=== PATIENT | female | born 1955 | race Caucasian/White ===

== ENCOUNTER 2018-04-24 01:23 | Outpatient (CLI) | payer OTHER, SELFPAY ==
[2018-04-24 10:33] LABS: Hemoglobin A1C 9.5 % (4.5-6.2)
[2018-04-24 11:09] LABS: Anion Gap 8.9 mmol/L (3-11); BUN 16 mg/dL (7-18); CO2 30.1 mmol/L (21.0-32.0); Calcium 8.6 mg/dL (8.5-10.1); Chloride 100 mmol/L (98-107); Glucose 226 mg/dL (70-100); Potassium 3.8 mmol/L (3.5-5.1); Sodium 139 mmol/L (136-145)
== END 2018-04-24 01:43 ==
DX: E11.9 Type 2 diabetes mellitus without complications (principal); I10 Essential (primary) hypertension; F32.9 Major depressive disorder, single episode, unspecified; J45.909 Unspecified asthma, uncomplicated
CPT/HCPCS: 36415; 80048; 83036

== ENCOUNTER 2018-06-21 01:06 | Outpatient (CLI) | payer OTHER, SELFPAY ==
--- NOTE | 2018-06-21 12:15 | DI.MAMMO_ITS ---
SYMPTOMS/DIAGNOSIS: SCREENING, Z12.31 MAMMOGRAM: Mammograms were interpreted according to the usual protocol including computer analysis with CAD system, tomosynthesis and C view imaging. The breasts are of moderate density with fairly symmetrical distribution of fibroglandular tissue. No dominant mass or clumped microcalcification is identified in either breast. The current examination is compared with previous examinations including October 2016 and there has been no gross interval change in appearance in comparison with the previous studies. CONCLUSION: No specific evidence of malignancy at this time. Routine screening examinations are suggested at yearly intervals due to the family history of breast carcinoma. Category I. Breast density Category B. MQSA ASSESSMENT OF FINDINGS: Negative. Category 1. Patient will receive a letter notifying them of these results. BI-RADS category B. There are scattered areas of fibroglandular density.
== END 2018-06-21 01:26 ==
DX: Z12.31 Encounter for screening mammogram for malignant neoplasm of breast (principal)
CPT/HCPCS: 77063; 77067

== ENCOUNTER 2018-09-18 18:41 | Outpatient (REF) | payer BC, SELFPAY | END 2018-09-18 19:01 | LOC: LBN 18:41 | PROVIDERS: Visit Provider Family Medicine | DX: N89.8 Other specified noninflammatory disorders of vagina (principal) | CPT/HCPCS: 87480; 87510; 87660 ==

== ENCOUNTER 2018-09-29 16:22 | Outpatient (CLI) | payer BC, SELFPAY ==
[2018-09-29 16:52] LABS: Abs Immature Grans 0.07 k/cumm (0.0-0.09); Absolute Basophil Count 0.04 k/cumm (0.0-0.2); Absolute Eosinophil Count 0.06 k/cumm (0.0-0.7); Absolute Lymphocyte Count 1.03 k/cumm (1.2-3.4); Absolute Monocyte Count 0.38 k/cumm (0.11-0.7); Absolute Neutrophil Count 8.46 k/cumm (1.2-6.7); Basophils % 0.4; Eosinophils % 0.6; HGB 12.8 g/dL (12.0-15.5); Immature Grans % 0.7; Lymphocytes % 10.3; Mean Corpuscular Hemoglobin 29.6 pg (27.0-33.0); Mean Corpuscular Volume 92.4 fL (80-95); Mean Platelet Volume 9.8 fL (8.0-11.0); Monocytes % 3.8; Neutrophils % 84.2; Platelet Count 335 x1000/uL (130-400); RBC 4.33 m/cumm (4.00-5.20); White Blood Cell Count 10.04 k/cumm (4.4-10.8)
[2018-09-29 17:50] LABS: ALT 58 U/L (12-78); AST 19 U/L (15-37); Albumin 3.2 g/dL (3.4-5.0); Alkaline Phosphatase 116 U/L (46-116); Anion Gap 10.9 mmol/L (3-11); BUN 17 mg/dL (7-18); Bilirubin, Total 0.2 mg/dL (0.2-1.0); CO2 29.1 mmol/L (21.0-32.0); CREATININE 0.79 mg/dL (0.55-1.02); Calcium 8.7 mg/dL (8.5-10.1); Chloride 96 mmol/L (98-107); FREE T4 1.38 ng/dL (0.76-1.46); Glucose 426 mg/dL (70-100); Potassium 3.9 mmol/L (3.5-5.1); Sodium 136 mmol/L (136-145)
[2018-09-29 18:16] LABS: TSH 3.79 uIU/mL (0.358-3.74)
== END 2018-09-29 16:42 ==
PROVIDERS: PCP Nurse Practitioner Family; Visit Provider Nurse Practitioner Family
DX: R10.30 Lower abdominal pain, unspecified (principal); R30.0 Dysuria; N89.8 Other specified noninflammatory disorders of vagina; J02.9 Acute pharyngitis, unspecified; R06.02 Shortness of breath
CPT/HCPCS: 36415; 80053; 87077; 84439; 84443; 85025; 87070; 87081; 87086; 87480; 87510; 87660

== ENCOUNTER 2018-11-01 17:18 | Outpatient (REF) | payer BC, SELFPAY ==
--- NOTE | 2018-11-01 16:00 | VUL_PTH ---
PATIENT: Aicha Taylor LOC: [facility] U#:[id number] AGE/SX: 63/F ROOM: RE11/01/[address]: Kym Madera : 1955 BED: DIS: 11/01/2018 SPEC #: [id number] RECD: 11/01/18 17:55 STATUS: CRYS REByron #: [id number] YOHANA: 11/01/18 16:[address]: Kym Madera DEPT: Surgical Specimen RECD BY: Siobhan Drummond ENTERED: 11/01/18 17:56 SP TYPE: VUL OTHR DR: CHILANGO Valdivia Tissues: 1 - VULVA BIOPSY 2 - VULVA BIOPSY Procedures: GROSS AND MICRO LEVEL 4 SPECIAL STAIN 1 Comments: [id number]
== END 2018-11-01 17:38 ==
LOC: LBN 17:18
PROVIDERS: PCP Nurse Practitioner Family; Visit Provider Obstetrics & Gynecology Gynecology
DX: N76.89 Other specified inflammation of vagina and vulva (principal)
CPT/HCPCS: 88305; 88312

== ENCOUNTER 2018-12-06 10:56 | Outpatient (CLI) | payer BC, SELFPAY ==
[2018-12-06 13:04] LABS: Hemoglobin A1C 11.9 % (4.5-6.2)
[2018-12-06 13:08] LABS: FREE T4 1.42 ng/dL (0.76-1.46); TSH 6.86 uIU/mL (0.358-3.74)
[2018-12-08 10:32] LABS: Cholesterol 234 mg/dL (50-200); HDL Cholesterol 42 mg/dL (40-60); LDL CHOLESTEROL 162 mg/dL (<100); Triglyceride 227 mg/dL (30-150)
== END 2018-12-06 11:16 ==
PROVIDERS: PCP Nurse Practitioner Family; Visit Provider Nurse Practitioner Family
DX: E11.9 Type 2 diabetes mellitus without complications (principal); E03.9 Hypothyroidism, unspecified
CPT/HCPCS: 36415; 80061; 83721; 83036; 84439; 84443

== ENCOUNTER 2019-03-16 03:55 | Outpatient (CLI) | payer BC, SELFPAY ==
[2019-03-16 13:00] LABS: Anion Gap 11.9 mmol/L (3-11); BUN 15 mg/dL (7-18); CO2 29.1 mmol/L (21.0-32.0); CREATININE 0.64 mg/dL (0.55-1.02); Calcium 8.9 mg/dL (8.5-10.1); Calculated LDL 85 mg/dL; Chloride 99 mmol/L (98-107); Cholesterol 151 mg/dL (50-200); Glucose 184 mg/dL (70-100); HDL Cholesterol 46 mg/dL (40-60); Sodium 140 mmol/L (136-145); Triglyceride 104 mg/dL (30-150)
[2019-03-16 13:10] LABS: Hemoglobin A1C 10.2 % (4.5-6.2)
== END 2019-03-16 04:15 ==
PROVIDERS: PCP Nurse Practitioner Family; Visit Provider Nurse Practitioner Family
DX: E11.9 Type 2 diabetes mellitus without complications (principal)
CPT/HCPCS: 36415; 80048; 80061; 83721; 83036

== ENCOUNTER 2019-05-28 07:26 | Outpatient (CLI) | payer BC, SELFPAY ==
[2019-05-28 12:46] LABS: COMMENT (LAB VIEW ONLY) < 13.00 mg/dL
[2019-05-28 13:56] LABS: FREE T4 1.39 ng/dL (0.76-1.46); TSH 5.98 uIU/mL (0.36-3.74)
[2019-05-28 14:45] LABS: Vitamin D 25 Total 55.1 ng/ml (30-100)
== END 2019-05-28 07:46 ==
PROVIDERS: PCP Nurse Practitioner Family; Visit Provider Nurse Practitioner Family
DX: E03.9 Hypothyroidism, unspecified (principal); E55.9 Vitamin D deficiency, unspecified; E11.9 Type 2 diabetes mellitus without complications
CPT/HCPCS: 36415; 82306; 82043; 82570; 84439; 84443

== ENCOUNTER 2019-07-16 09:27 | Outpatient (CLI) | payer BC, SELFPAY ==
[2019-07-16 14:44] LABS: FREE T4 1.57 ng/dL (0.76-1.46); TSH 1.69 uIU/mL (0.36-3.74)
== END 2019-07-16 09:47 ==
PROVIDERS: PCP Nurse Practitioner Family; Visit Provider Nurse Practitioner Family
DX: E03.9 Hypothyroidism, unspecified (principal)
CPT/HCPCS: 36415; 84439; 84443

== ENCOUNTER 2019-07-19 00:36 | Outpatient (CLI) | payer BC, SELFPAY ==
--- NOTE | 2019-07-19 14:26 | DI.DEXA_ITS ---
EXAM: XR DEXA BONE DENSITY W/WO AMOL INDICATION: Postmenopausal Z78.0. COMPARISON: CHEST 2 VIEWS PA,LAT from 11/07/2016 FINDINGS: The AMOL image shows accentuation of the normal thoracic kyphosis but no definite compression fractur e. This does not appear to be significantly changed from previous chest x-ray from 2017. Bone money examiner al density measurements of the lumbar spine correspond to a total T-score of -1.7, in the osteopenic range. The bone mineral density measurements of the left hip correspond to a total T-score of 0.5 an d a femoral neck T-score of -0.7, in the normal range. The bone mineral density measurements of left forearm correspond to a T-score of the distal 3rd of 0.2, in the normal range. IMPRESSION: Normal bone mineral density measurements of the left forearm and left hip. Osteopenia of lumbar spin e.
== END 2019-07-19 00:56 ==
PROVIDERS: PCP Nurse Practitioner Family; Visit Provider Nurse Practitioner Family
DX: M85.88 Other specified disorders of bone density and structure, other site (principal); Z78.0 Asymptomatic menopausal state
CPT/HCPCS: 77080

== ENCOUNTER 2019-09-27 11:59 | Outpatient (CLI) | payer OTHER, SELFPAY ==
[2019-09-27 13:39] LABS: TSH 3.06 uIU/mL (0.36-3.74)
[2019-09-27 13:54] LABS: Hemoglobin A1C 8.4 % (3.8-5.6)
== END 2019-09-27 12:19 ==
PROVIDERS: PCP Nurse Practitioner Family; Visit Provider Nurse Practitioner Family
DX: E03.9 Hypothyroidism, unspecified (principal); E11.9 Type 2 diabetes mellitus without complications
CPT/HCPCS: 36415; 83036; 84439; 84443

== ENCOUNTER 2019-09-27 12:17 | Outpatient (REF) | payer OTHER, SELFPAY | END 2019-09-27 12:37 | LOC: LBN 12:17 | PROVIDERS: PCP Nurse Practitioner Family; Visit Provider Nurse Practitioner Family | DX: J06.9 Acute upper respiratory infection, unspecified (principal) | CPT/HCPCS: 87449 ==

== ENCOUNTER 2020-01-08 02:34 | Outpatient (CLI) | payer OTHER, SELFPAY ==
--- NOTE | 2020-01-08 10:00 | DI.MAMMO_ITS ---
EXAM: MG MAMMO SCREENING CLINICAL HISTORY: screening.z12.39 TECHNIQUE: Mammograms were interpreted according to the usual protocol including computer analysis w [employer] CAD system, tomosynthesis and C-view imaging. COMPARISON: FINDINGS: The breasts are of moderate density with fairly symmetrical distribution of fibroglandular tissue. N o dominant mass or clumped microcalcification is identified in either breast. The current examinatio n is compared with previous examinations including June 2018 and there has been no gross interval change in appearance comparison with previous studies. IMPRESSION: No specific evidence of malignancy at this time. Routine screening examinations are suggested at yea rly intervals due to the family history of breast carcinoma. BI-RADS Cat 1 - Negative: Breast Density - Category B - Scattered areas of fibroglandular density:
== END 2020-01-08 02:54 ==
PROVIDERS: PCP Nurse Practitioner Family; Visit Provider Nurse Practitioner Family
DX: Z12.31 Encounter for screening mammogram for malignant neoplasm of breast (principal); Z80.3 Family history of malignant neoplasm of breast
CPT/HCPCS: 77063; 77067

== ENCOUNTER 2020-01-08 05:05 | Outpatient (CLI) | payer OTHER, SELFPAY ==
[2020-01-08 11:44] LABS: C-Reactive Protein 2.31 mg/dL (0.0-0.3)
[2020-01-08 12:18] LABS: ESR 63 mm/hr (0-30)
[2020-01-09 16:47] LABS: Albumin 47.1 % (55.8-66.1); Total Protein 7.7 g/dL (6.3-8.2)
== END 2020-01-08 05:25 ==
PROVIDERS: PCP Nurse Practitioner Family; Visit Provider Nurse Practitioner Family
DX: M35.3 Polymyalgia rheumatica (principal)
CPT/HCPCS: 36415; 85652; 84165; 86140

== ENCOUNTER 2020-06-10 04:46 | Outpatient (CLI) | payer OTHER, SELFPAY ==
[2020-06-10 12:45] LABS: ALT 27 U/L (14-59); AST 10 U/L (15-37); Albumin 3.4 g/dL (3.4-5.0); Alkaline Phosphatase 102 U/L (46-116); BUN 21 mg/dL (7-18); Bilirubin, Total 0.2 mg/dL (0.2-1.0); C-Reactive Protein 2.49 mg/dL (0.0-0.3); CREATININE 0.75 mg/dL (0.55-1.02); Calcium 9.2 mg/dL (8.5-10.1); Chloride 103 mmol/L (98-107); FREE T4 1.29 ng/dL (0.76-1.46); Glucose 125 mg/dL (74-106); Potassium 4.1 mmol/L (3.5-5.1); Sodium 139 mmol/L (136-145); TSH 1.47 uIU/mL (0.36-3.74); Total Protein 7.6 g/dL (6.4-8.2)
[2020-06-10 12:59] LABS: Calculated LDL 91 mg/dL (<100); Cholesterol 153 mg/dL (<200); HDL Cholesterol 41 mg/dL (40-60); Triglyceride 109 mg/dL (<150)
[2020-06-10 13:09] LABS: Hemoglobin A1C 6.6 % (<5.7)
[2020-06-10 13:49] LABS: ESR 77 mm/hr (0-30)
[2020-06-13 15:15] LABS: Albumin 3.2 g/dL (3.4-4.7); Total Protein 7.4 g/dL (6.3-7.9)
[2020-06-13 15:16] LABS: Comment See Comments
== END 2020-06-10 05:06 ==
PROVIDERS: PCP Nurse Practitioner Family; Visit Provider Nurse Practitioner Family
DX: E03.9 Hypothyroidism, unspecified (principal); E11.9 Type 2 diabetes mellitus without complications; M35.3 Polymyalgia rheumatica
CPT/HCPCS: 36415; 80053; 80061; 85652; 83036; 84165; 84439; 84443; 86140

== ENCOUNTER 2020-06-25 01:03 | Outpatient (CLI) | payer OTHER, SELFPAY ==
--- NOTE | 2020-06-25 | DI.RAD_ITS ---
EXAM: XR CHEST 2V PA LATERAL CLINICAL HISTORY: MEDICATION MONITORING ENCOUNTER,Z51.81,REP BIOLOGICAL,h/o idiopathic TECHNIQUE: 2D digital imaging was performed. COMPARISON: CR CHEST 2 VIEWS PA,LAT from 11/07/2016 FINDINGS: MEDIASTINUM: Normal. HEART: Normal. PULMONARY VASCULATURE: Normal. LUNGS: Clear. Stable mild scarring in the left lung. PLEURAL SPACE: No pleural effusion or pneumothorax. BONE:Within normal limits for the patient's age. OTHER FINDINGS:Normal. IMPRESSION: No acute pulmonary findings. DATA REPOSITORY: RADIATION DOSE DELIVERED:
--- NOTE | 2020-06-25 | DI.RAD_ITS ---
EXAM: XR KNEE LT 3V AP,LAT,MONSERRAT CLINICAL HISTORY: CHRONIC KNEE PAIN, REP-BIOLOGICAL,M25.561,M25.562,G89.29. TECHNIQUE: 2D digital imaging was performed. COMPARISON: CR XR CHEST 2V PA LATERAL from 06/25/2020 FINDINGS: Mild degenerative changes are seen in the left knee characterized by joint space narrowing and periar ticular spurring particularly in the medial femoral tibial joint space. The bones are intact and nor jennifer mineralized. No joint effusion is seen. The soft tissues are unremarkable. No acute fracture or dislocation. IMPRESSION: Mild degenerative changes of the left knee. DATA REPOSITORY: RADIATION DOSE DELIVERED:
--- NOTE | 2020-06-25 | DI.RAD_ITS ---
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 TECHNIQUE: 2D digital imaging was performed. COMPARISON: No exams were available for comparison FINDINGS: BONES: No acute fracture is present. No bony destructive lesion is seen. JOINTS: No dislocation present. Mild narrowing of the hip joints bilaterally. The sacroiliac joints are unremarkable. SOFT TISSUE: Normal. IMPRESSION: Mild bilateral narrowing of the hip joints. DATA REPOSITORY: RADIATION DOSE DELIVERED:
--- NOTE | 2020-06-25 | DI.RAD_ITS ---
EXAM: XR KNEE RT 3V AP,LAT,MONSERRAT CLINICAL HISTORY: KNEE PAIN,M25.561,M25.562,G89.29. TECHNIQUE: 2D digital imaging was performed. COMPARISON: CR XR KNEE LT 3V AP,LAT,MONSERRAT from 06/25/2020 FINDINGS: Mild degenerative changes are seen in the right knee with joint space narrowing and periarticular spu rring in the lateral femoral tibial joint. The joint spaces are otherwise well maintained. The bone s are intact and normally mineralized. There is a small enthesophyte at the superior patella. No matt int effusion is present. The soft tissues are unremarkable. IMPRESSION: Mild degenerative changes of the right knee. DATA REPOSITORY: RADIATION DOSE DELIVERED:
== END 2020-06-25 01:23 ==
PROVIDERS: PCP Nurse Practitioner Family; Visit Provider Internal Medicine
DX: M17.0 Bilateral primary osteoarthritis of knee (principal); Z51.81 Encounter for therapeutic drug level monitoring; M25.851 Other specified joint disorders, right hip; M25.852 Other specified joint disorders, left hip
CPT/HCPCS: 73521; 73562; 71046

== ENCOUNTER 2020-06-25 02:52 | Outpatient (CLI) | payer OTHER, SELFPAY ==
[2020-06-25 12:06] LABS: C-Reactive Protein 3.04 mg/dL (0.0-0.3); Creatine Kinase 52 U/L (26-192)
[2020-06-25 13:42] LABS: ESR 78 mm/hr (0-30)
[2020-07-10 11:56] LABS: TB Interpretation Negative (Negative); TB1 Ag minus Nil -0.01 IU/mL
== END 2020-06-25 03:12 ==
PROVIDERS: Internal Medicine; PCP Nurse Practitioner Family; Visit Provider Nurse Practitioner Family
DX: Z51.81 Encounter for therapeutic drug level monitoring (principal); I30.0 Acute nonspecific idiopathic pericarditis; M35.3 Polymyalgia rheumatica; R89.9 Unspecified abnormal finding in specimens from other organs, systems and tissues; M54.30 Sciatica, unspecified side; M25.551 Pain in right hip; G89.29 Other chronic pain; M25.561 Pain in right knee; M25.562 Pain in left knee; M25.552 Pain in left hip
CPT/HCPCS: 36415; 82550; 85652; 86140; 86431; 86480

== ENCOUNTER 2020-07-07 10:40 | Outpatient (CLI) | payer OTHER, SELFPAY ==
[2020-07-09 13:52] LABS: TB Interpretation Negative (Negative); TB2 Ag minus Nil 0.02 IU/mL
== END 2020-07-07 11:00 ==
PROVIDERS: PCP Nurse Practitioner Family; Referring Provider Nurse Practitioner Family; Visit Provider Nurse Practitioner Family
DX: M35.3 Polymyalgia rheumatica (principal); M19.90 Unspecified osteoarthritis, unspecified site
CPT/HCPCS: 36415; 86480

== ENCOUNTER → 2020-08-15 10:09 | Outpatient (CLI) | payer OTHER, SELFPAY ==
--- NOTE | 2020-08-15 09:45 | DI.RAD_ITS ---
EXAM: XR LUMBAR SPINE COMPLETE CLINICAL HISTORY: eval LBP, ?stenosis. TECHNIQUE: 2D digital imaging was performed. COMPARISON: No exams were available for comparison FINDINGS: There are 5 lumbar type vertebral bodies. There is normal alignment. No spondylolysis or spondyloli sthesis is present. The disc heights are well maintained. Small endplate osteophytes are seen from L2-3 through L5-S1. There are degenerative changes of the facets from L3-4 through L5-S1. No acute fracture or subluxation is present. There is atherosclerosis. IMPRESSION: Moderate degenerative changes of the lumbar spine. DATA REPOSITORY: RADIATION DOSE DELIVERED:
== END ==
PROVIDERS: PCP Nurse Practitioner Family; Referring Provider Nurse Practitioner Family; Visit Provider Student in an Organized Health Care Education/Training Program
DX: M47.816 Spondylosis without myelopathy or radiculopathy, lumbar region (principal)
CPT/HCPCS: 72110

== ENCOUNTER 2020-08-22 01:04 | Outpatient (CLI) | payer OTHER, SELFPAY ==
[2020-08-22 12:53] LABS: Abs Immature Grans 0.07 10^3/uL (0.0-0.06); Absolute Basophil Count 0.06 10^3/uL (0.0-0.2); Absolute Eosinophil Count 0.14 10^3/uL (0.0-0.7); Absolute Lymphocyte Count 1.26 10^3/uL (1.2-3.4); Absolute Monocyte Count 0.46 10^3/uL (0.1-0.8); Absolute Neutrophil Count 8.02 10^3/uL (1.2-6.7); Basophils % 0.6; Eosinophils % 1.4; HCT 38.6 % (36.0-46.0); HGB 11.7 g/dL (11.2-15.7); Immature Grans % 0.7; Lymphocytes % 12.6; MCH 25.2 pg (27.0-33.0); MCHC 30.3 % (32.0-36.0); MPV 9.2 fL (8.0-11.0); Monocytes % 4.6; Neutrophils % 80.1; Nucleated RBC 0 %; Platelet Count 422 10^3/uL (130-400); RBC 4.65 10^6/uL (3.93-5.22); RDW 16.4 % (11.7-14.6); RDW-SD 48.4 fL; WBC 10.01 10^3/uL (4.4-10.8)
[2020-08-22 12:59] LABS: ALT 25 U/L (14-59); AST 10 U/L (15-37); Albumin 3.4 g/dL (3.4-5.0); Alkaline Phosphatase 99 U/L (46-116); Anion Gap 7.8 mmol/L (3-11); BUN 20 mg/dL (7-18); Bilirubin, Total 0.2 mg/dL (0.2-1.0); C-Reactive Protein 2.14 mg/dL (0.0-0.3); CO2 30.2 mmol/L (21.0-32.0); CREATININE 0.76 mg/dL (0.55-1.02); Chloride 102 mmol/L (98-107); Glucose 154 mg/dL (74-106); Sodium 140 mmol/L (136-145); Total Protein 7.8 g/dL (6.4-8.2)
[2020-08-22 14:10] LABS: ESR 50 mm/hr (0-30)
== END 2020-08-22 01:24 ==
PROVIDERS: PCP Nurse Practitioner Family; Visit Provider Internal Medicine
DX: M35.3 Polymyalgia rheumatica (principal); R89.9 Unspecified abnormal finding in specimens from other organs, systems and tissues; Z51.81 Encounter for therapeutic drug level monitoring
CPT/HCPCS: 36415; 80053; 85652; 85025; 86140

== ENCOUNTER 2020-08-28 03:30 | Outpatient (CLI) | payer OTHER, SELFPAY ==
--- NOTE | 2020-08-28 08:00 | DI.RAD_ITS ---
EXAM: RF JOINT INJECTION FLUORO GUID CLINICAL HISTORY: L HIP INJ UNDER FLUORO, LT HIP PAIN, M25.552 TECHNIQUE: 2D and realtime digital imaging was performed. CONTRAST MATERIAL: Water soluble contrast was administered. COMPARISON: No exams were available for comparison FINDINGS: Fluoroscopy was provided for Dr. Cabrera during the performance of a bilateral hip injection. Plea se refer to the procedure report for complete details. Fluoro time: 2 seconds
--- NOTE | 2020-08-28 08:00 | DI.RAD_ITS ---
EXAM: RF JOINT INJECTION FLUORO GUID CLINICAL HISTORY: R HIP INJ UNDER FLUORO, RT HIP PAIN, M25.552 TECHNIQUE: 2D and realtime digital imaging was performed. CONTRAST MATERIAL: Water soluble contrast was administered. COMPARISON: No exams were available for comparison FINDINGS: Fluoroscopy was provided for Dr. Cabrera during the performance of a bilateral hip injection. Plea se refer to the procedure report for complete details. Fluoro time: 2 seconds
[2020-08-28] MEDS: Bupivacaine 0.5% Pres-Free 10 ML VIAL IJ (13:38)
[2020-08-28] MEDS: methylPREDNISolone ACETATE 80 MG/ML VIAL IM (13:39)
--- NOTE | 2020-08-28 14:21 | OPPNE_ITS ---
Date of service: 08/28/20 Time of Service: 13:29 Procedure Note Date of procedure: 08/28/20 Procedure: Bilateral Hip Injection with Fluoroscopic Guidance Surgeon/Proceduralist/Physician: Viktor Cabrera Procedure Diagnosis: Bilateral Hip Pain Procedure Indications: Aicha has had persistent pain of both RIGHT and LEFT hip and groin. Noninvasive measures have been tried. There are also cocerns that this is coming from the lumbar spine. To serve as both diagnostic and therapeutic, an injection under fluoroscopy was recommended. I had discussed the risks of the procedure and the patient elected to proceed. Procedure Description: Aicha was greeted in the flouroscopy room. The correct site was identified and the consent was reviewed with the patient and signed. The patient was then placed in the supine position on the fluoroscopy table. The RIGHT hip was then prepped with Chloraprep. The anterolateral injection starting point was identiifed by bony landmarks and fluoroscopy. The skin and soft tissue in the tract of the injection was anesthetized with 1% Lidocaine. A spinal needle was then inserted deep into the hip joint at the level of the lateral femoral neck under fluoroscopic guidance. Omnipaque was not used due to iodinated contrast allergy but needle was confirmed to be in hip on flouro and tactile feedback of needle tip on bone. Then, the hip was injected with 5cc of 0.5% Bupivicaine and 80mg of Depo-Medrol. A bandaid was placed on the injection site. Attention was then turned to the left hip. This left hip was then prepped with ChloraPrep. The anterolateral injection starting point was identiifed by bony landmarks and fluoroscopy. The skin and soft tissue in the tract of the inject ion was anesthetized with 1% Lidocaine. A spinal needle was then inserted deep into the hip joint at the level of the lateral femoral neck under fluoroscopic guidance. Omnipaque was not used due to iodinated contrast allergy but needle was confirmed to be in hip on flouro and tactile feedback of needle tip on bone. Then, the hip was injected with 5cc of 0.5% Bupivicaine and 80mg of Depo-Medrol. A bandaid was placed on the injection site. The patient tolerated the procedure well and noted improvement in pre-injection pain.
== END 2020-08-28 03:50 ==
PROVIDERS: PCP Nurse Practitioner Family; Visit Provider Student in an Organized Health Care Education/Training Program
DX: M25.552 Pain in left hip (principal); M25.551 Pain in right hip
CPT/HCPCS: 20610 ×2; 77002; J1040

== ENCOUNTER 2020-10-24 01:47 | Outpatient (CLI) | payer OTHER, SELFPAY ==
[2020-10-24 12:22] LABS: Absolute Basophil Count 0.06 10^3/uL (0.0-0.2); Absolute Lymphocyte Count 1.69 10^3/uL (1.2-3.4); Absolute Neutrophil Count 11.68 10^3/uL (1.2-6.7); Basophils % 0.4; Eosinophils % 0.8; HCT 37.5 % (36.0-46.0); HGB 11.6 g/dL (11.2-15.7); Immature Grans % 0.7; Lymphocytes % 11.8; MCH 25.7 pg (27.0-33.0); MCHC 30.9 % (32.0-36.0); MPV 9.1 fL (8.0-11.0); Monocytes % 4.9; Neutrophils % 81.4; Nucleated RBC 0 %; Platelet Count 414 10^3/uL (130-400); RBC 4.52 10^6/uL (3.93-5.22); RDW 17.1 % (11.7-14.6); RDW-SD 50.3 fL; WBC 14.35 10^3/uL (4.4-10.8)
[2020-10-24 12:30] LABS: Absolute Eosinophil Count 0.11 10^3/uL (0.0-0.7)
[2020-10-24 12:38] LABS: ALT 26 U/L (14-59); AST 7 U/L (15-37); Albumin 3.4 g/dL (3.4-5.0); Alkaline Phosphatase 110 U/L (46-116); Anion Gap 10.8 mmol/L (3-11); BUN 18 mg/dL (7-18); Bilirubin, Total 0.3 mg/dL (0.2-1.0); C-Reactive Protein 2.98 mg/dL (0.0-0.3); CO2 31.2 mmol/L (21.0-32.0); CREATININE 0.8 mg/dL (0.55-1.02); Calcium 9.5 mg/dL (8.5-10.1); Chloride 98 mmol/L (98-107); Glucose 111 mg/dL (74-106); Potassium 3.4 mmol/L (3.5-5.1); Sodium 140 mmol/L (136-145); Total Protein 7.9 g/dL (6.4-8.2)
[2020-10-24 19:30] LABS: ESR 105 mm/hr (<or=30)
== END 2020-10-24 01:48 | disposition home or self-care (01) ==
LOC: LOS 01:47
PROVIDERS: PCP Nurse Practitioner Family; Visit Provider Internal Medicine
DX: M35.3 Polymyalgia rheumatica (principal); R89.9 Unspecified abnormal finding in specimens from other organs, systems and tissues; Z51.81 Encounter for therapeutic drug level monitoring
CPT/HCPCS: 36415; 80053; 85652; 85025; 86140

== ENCOUNTER 2020-11-21 02:28 | Outpatient (CLI) | payer OTHER, SELFPAY ==
[2020-11-22 15:07] LABS: COVID-19 RT-PCR UVMMC Result Negative (Negative)
== END 2020-11-21 02:29 | disposition home or self-care (01) ==
LOC: LBO 02:29
PROVIDERS: PCP Nurse Practitioner Family; Visit Provider Nurse Practitioner Family
DX: Z20.822 Contact with and (suspected) exposure to COVID-19 (principal)
CPT/HCPCS: U0003

== ENCOUNTER 2020-11-24 02:51 | Outpatient (CLI) | payer OTHER, SELFPAY ==
[2020-11-25 18:09] LABS: COVID-19 RT-PCR UVMMC Result Negative (Negative)
== END 2020-11-24 02:52 | disposition home or self-care (01) ==
LOC: LBO 02:52
PROVIDERS: PCP Nurse Practitioner Family; Visit Provider Nurse Practitioner Family
DX: Z20.822 Contact with and (suspected) exposure to COVID-19 (principal)
CPT/HCPCS: U0003

== ENCOUNTER 2020-12-09 20:50 | Outpatient (REF) | payer OTHER, SELFPAY ==
[2020-12-09 21:09] LABS: Bilirubin Negative (Negative); Blood Negative (Negative); Clarity Sl Cloudy (Clear); Glucose Negative (Negative); Ketones Negative (Negative); Leukocyte Esterase Trace (Negative); Nitrite Negative (Negative); Specific Gravity >= 1.030 (1.005-1.025); Urobilinogen 0.2 EU/dL (Up TO 0.2); pH 5.5 (5-8)
[2020-12-09 21:15] LABS: Bacteria Moderate HPF (Negative); C & S Indicated? Yes; Casts Negative LPF (Negative); Crystals Moderate Amorphous HPF (Negative); Epithelial Cells Few HPF (Negative); Mucus Negative (Negative); RBC Negative HPF (0-2)
== END 2020-12-09 20:51 | disposition home or self-care (01) ==
LOC: LBN 20:50
PROVIDERS: PCP Nurse Practitioner Family; Visit Provider Nurse Practitioner Family
DX: R31.9 Hematuria, unspecified (principal)
CPT/HCPCS: 81003; 81015; 87086

== ENCOUNTER 2020-12-16 03:57 | Outpatient (CLI) | payer OTHER, SELFPAY ==
[2020-12-16] MEDS: Inhaler, Assist Device 1 EACH MC (14:30)
[2020-12-16] MEDS: Albuterol HFA 18 GM 200 PUFF INH IH (14:30)
--- NOTE | 2020-12-16 19:29 | W.PFT ---
Date of service: 12/16/20 Time of Service: 01:01 Pulmonary Function Test Result Interpretation Spirometry: Mild obstructive airways disease with some but not significant bronchodilator response Lung Volumes: No evidence of restriction Diffusion Capacity: Normal Airway Pressure: Mildly elevated Impression Mild obstructive airways disease with some but not significant bronchodilator response when the study was compared to previous one from 11/01/2014 there is a 340 cc decline in FVC, FEV1 has declined by 150 cc Clinical Correlation therefore is recommended.
== END 2020-12-16 03:58 | disposition home or self-care (01) ==
LOC: RT 03:57
PROVIDERS: PCP Nurse Practitioner Family; Visit Provider Nurse Practitioner Family
DX: J45.40 Moderate persistent asthma, uncomplicated (principal); R06.09 Other forms of dyspnea; R07.89 Other chest pain
CPT/HCPCS: 94060; 94726; 94729

== ENCOUNTER 2021-02-19 02:27 | Outpatient (CLI) | payer OTHER, SELFPAY ==
--- NOTE | 2021-02-19 08:00 | DI.US_ITS ---
APPROVED REPORT EXAM: Comprehensive 2D, Doppler, and color-flow Echocardiogram Patient Location: Out-Patient Client Operations Manager: Isabel Barbour RDCS (AE) Indications: Persistent Dyspne on exertion Other Information Study Quality: Fair. Technically limited study due to body habitus. Conclusion Left Ventricle : The left ventricle is normal size. The left ventricular ejection fraction is within the normal range. There is normal left ventricular wall thickness. There is normal LV segmental wall motion. LVEF is 57%. Right Ventricle : The right ventricle is normal size. The right ventricular systolic function is norm al. Atria : The left atrium size is normal. The right atrium size is normal. Valves: There are no hemodynamically significant valvular lesions. Great Vessels : The aortic root is normal in size. The ascending aorta is mildly dilated. Aortic arch is normal in caliber. IVC is normal in size and collapses >50% with inspiration. Please see remainder of study for further details. Wall motion Left Ventricle The left ventricle is normal size. The left ventricular ejection fraction is within the normal range. There is normal left ventricular wall thickness. There is normal LV segmental wall motion. There is no ventricular septal defect visualized. LVEF is 57%. Right Ventricle The right ventricle is normal size. The right ventricular systolic function is normal. Atria The left atrium size is normal. The right atrium size is normal. The interatrial septum is intact wit h no evidence for an atrial septal defect. Aortic Valve The aortic valve is normal in structure. Aortic valve is trileaflet. There is no aortic valvular sten osis. No aortic regurgitation is present. Mitral Valve The mitral valve is normal in structure. No evidence of mitral valve stenosis. Trace mitral regurgita tion. Tricuspid Valve The tricuspid valve is normal in structure. There is no tricuspid valve stenosis. Trace tricuspid reg urgitation. Unable to assess PA pressure. Pulmonic Valve Pulmonic valve is not well visualized. There is no pulmonic valvular stenosis. There is no pulmonic v alvular regurgitation. Great Vessels The aortic root is normal in size. The ascending aorta is mildly dilated. Aortic arch is normal in ca liber. IVC is normal in size and collapses >50% with inspiration. Pericardium There is no pericardial effusion. 2D Dimensions IVSD d PLAX 0.98 cm F: 0.6-1.0 LV Vol A2C d MOD 85.6 mL LVPW d PLAX 0.98 cm F: 0.6 - 1.0 LV Vol A4C d MOD 94.1 mL LVID d PLAX 4.70 cm F: 3.8 - 5.2 LA vol/ BSA A4C s A-L 44.1 mL/m2 LVDs 3.20 cm F: 2.2 - 3.5 LA Area A4C s MOD 27.60 cm2 Ao Root d 2.70 cm F: 2.7 - 3.3 LV EF A4C MOD 58.8 % RA Area A4C 12.96 cm2 LV EF A2C MOD 63.0 % RA Vol/ BSA A4C s A-L 14.4 mL/m2 LV EF Biplane MOD 57.2 % Ao Asc Diam d 3.38 cm F: 2.3 - 3.1 SV 51.57 mL LV EF Teichholz 58.9 % SV Index 23.48 mL/m2 LVEF ([facility]moon's) 57.15 % F: 54 - 74 LV Volume 65.66 mL F: 46 - 106 LV Volume Index 29.98 mL/m2 F: 29 - 61 LV Vol Biplane MOD 90.2 mL FS 31.15 % M-Mode TAPSE 2.60 cm (M/F) >1.7 LV Diastology E/A Ratio 1.0 MV E Vmax 0.84 (0.4-1.3 m/s) MV A Vmax 0.85 (0.4-1.3 m/s) MV E/A Ratio 0.93 Aortic Valve LVOT Area 3.68 cm2 AoV Area Vmax 3.29 cm2 LVOT Vmax 1.20 m/s AoV Area/ BSA (Vmax) 1.50 cm2/m2 LVOT Mean Declan. 0.88 m/s JOHNIE Mean Declan. 3.06 cm2 LVOT Peak Grad 5.8 mmHg JOHNIE Mean Declan. Index 1.39 cm2/m2 LVOT Mean Grad 3.5 mmHg LVOT VTI 0.242 m LVOT Diam s 2.15 cm AoV Vmax 1.34 m/s Velocity Ratio 0.89 AoV Mean Declan. 1.06 m/s AoV Peak Grad 7.2 mmHg LVOT SV 88.90 mL AoV Mean Grad 4.7 mmHg AoV VTI 0.282 m AoV Area VTI 3.16 cm2 AoV Area/ BSA (VTI) 1.44 cm/m2 Mitral Valve MV DT 239 (160-240 msec) MV PHT 69 msec MV Area PHT 3.17 cm2 MV VTI 0.196 m MV Area VTI 4.54 (4.0-6.0 cm2) Pulmonary Valve PV Vmax 0.93 (0.5-1.5 m/s) RVOT Peak Gr. 2.56 mmHg PV Peak Grad 3.5 mmHg RVOT Mean Gr. 1.20 mmHg PV Mean Grad 2.0 mmHg RVOT VTI 0.156 m PV VTI 0.174 m RVOT Vmax 0.80 m/s
== END 2021-02-19 02:47 ==
PROVIDERS: PCP Nurse Practitioner Family; Visit Provider Nurse Practitioner Family
DX: R06.00 Dyspnea, unspecified (principal); I77.810 Thoracic aortic ectasia
CPT/HCPCS: 93306

== ENCOUNTER 2021-03-10 02:00 | Outpatient (CLI) | payer OTHER, SELFPAY ==
--- NOTE | 2021-03-10 07:30 | DI.NM_ITS ---
APPROVED REPORT Exam: Exercise Treadmill Patient Location: Out-Patient Room/Bed: Stress Nurse: Paulina Tenorio RN Ordering Provider:NAYRAY CURRIEMICHELLE, Contact Number: [phone] BMI: 50.10 Baseline Rhythm: Sinus Tachycardia Comment: inverted T wave lead III Indications: Persistent DAVE, History of asthma. Medical History Medical History: HTN, HLD, DM II, Asthma, Morbid obesity, STAR, Hypothyroidism Cardiac Medications: Albuterol sulfate, Amlodipine, Aspirin, Atorvastatin, Coenzyme Q10, Chlorthalido ne, Glipizide, Insulin degludec, Losartan, Metformin, Montelukast, Omeprazole Allergies: Keflex, Fish products, Iodinated contrast, PNC, Sulfa, Trimethoprim, Isosorbide, Quinolone s, Bisoprolol Cardiac Risk Factors: HTN, Hyperlipidemia, DM, FHX of CAD, Asthma, Obesity Previous Cardiac Procedures: None Pretest Chest Pain Characteristics: No chest pain Exercise History: Sedentary Physical Disabilities: Back pain Lung Sounds: Clear to auscultation Heart Sounds: Regular Stress Test Details Test: Exercise stress testing was performed using a modified Ilya protocol. Nuclear Acquisition: Rest Tc-99m/Stress Tc-99m 1 day Rest Isotope: Tc-99m Sestamibi. Dose: 14.7 Date: 03/10/2021 Injection Time: 0935 Stress Isotope: Tc-99m Sestamibi. Dose: 42 Date: 03/10/2021 Injection Time: 1235 HR Resting HR Supine: 101 bpm Max Heart Rate (APMHR): 153.019531 bpm Resting HR Standin bpm Target HR (85% APMHR): 130.024845 bpm Max HR Achieved: 152 bpm % of APMHR: 99.35 Recovery HR: 103 bpm HR response to stress: Normal HR response to stress Comment: Tachycardic baseline HR. BP Resting BP Supine: 150/86 mmHg Resting BP Standin/84 mmHg Max BP: 166/78 mmHg Recovery BP: 140/78 mmHg BP response to stress: Normal blood pressure response to stress. ECG Resting ECG: Sinus Tachycardia Ectopy: PVCs Comment: inverted T wave lead III Stress ECG: Sinus Tachycardia ST Change: No significant ST segment changes noted Arrhythmia: PVCs Recovery ECG: Sinus Tachycardia Recovery ST Change: No significant ST segment changes noted Recovery Arrhythmia: Couplets, multifocal PVCs Clinical Reason for Termination: Fatigue, Dyspnea, Back pain Stress Symptoms: Dyspnea Exercise duration: 2 min59 sec Highest Stage Reached: Stage 1: 1.7 mph at 10% grade. Exercise capacity: 2.96 METs Rate Pressure Product: [id number] Stress ECG Conclusion 1. The patient exercised for 3 minutes (3 minutes). Exercise was stopped due to dyspnea. 2. She had exaggerated heart rate response to exercise. 3. There was no evidence of ischemia on the ECG portion of the exam. Stress Test Summary STAGE Time (mins) Speed (mph) Grade (%) HR BP SYMPTOMS METS Supine 101 150/86 Standing 122 146/84 1 3 1.7 10 148 SpO2 97%; moderated SOB 4.6 1 min recovery 133 166/78 3 min recovery 111 154/76 6 min recovery 103 140/78 MPI Conclusion The ejection fraction was greater than 70% with stress. There were no wall motion abnormalities. There is a significant mount of extracardiac uptake inhibiting the interpretation of the study. That said, there was no significant perfusion defect. This likely represents a normal SPECT stress test. Radiologist Interpretation Radiologist agrees with Chief Transfer And Pumphouse Operator's Interpretation. Radiologist Interpretation by: Pito Hooper MD Interpretation Date/Time: 03/10/2021 15:26:45
== END 2021-03-10 02:20 ==
PROVIDERS: PCP Nurse Practitioner Family; Visit Provider Nurse Practitioner Family
DX: R06.00 Dyspnea, unspecified (principal); R00.0 Tachycardia, unspecified; J45.909 Unspecified asthma, uncomplicated; I10 Essential (primary) hypertension; E78.5 Hyperlipidemia, unspecified; E11.9 Type 2 diabetes mellitus without complications; Z82.49 Family history of ischemic heart disease and other diseases of the circulatory system; E66.9 Obesity, unspecified; Z68.43 Body mass index [BMI] 50.0-59.9, adult; I49.3 Ventricular premature depolarization
CPT/HCPCS: 78452; 93017

== ENCOUNTER 2021-03-18 12:44 | Outpatient (REF) | payer OTHER, SELFPAY ==
[2021-03-18 17:42] LABS: Abs Immature Grans 0.09 10^3/uL (0.0-0.06); Absolute Basophil Count 0.05 10^3/uL (0.0-0.2); Absolute Eosinophil Count 0.09 10^3/uL (0.0-0.7); Absolute Lymphocyte Count 1.26 10^3/uL (1.2-3.4); Absolute Monocyte Count 0.44 10^3/uL (0.1-0.8); Absolute Neutrophil Count 8.85 10^3/uL (1.2-6.7); Basophils % 0.5; Eosinophils % 0.8; HCT 35.1 % (36.0-46.0); HGB 10.7 g/dL (11.2-15.7); Immature Grans % 0.8; Lymphocytes % 11.7; MCH 26.7 pg (27.0-33.0); MCHC 30.5 % (32.0-36.0); MCV 87.5 fL (80-95); MPV 9.2 fL (8.0-11.0); Monocytes % 4.1; Neutrophils % 82.1; Nucleated RBC 0 %; Platelet Count 373 10^3/uL (130-400); RBC 4.01 10^6/uL (3.93-5.22); RDW 17.3 % (11.7-14.6); RDW-SD 55.4 fL; WBC 10.78 10^3/uL (4.4-10.8)
[2021-03-20 08:58] LABS: IgE 30 IU/mL (<158)
[2021-03-20 19:24] LABS: Aspergillus Fumigatus IgE <0.35 kU/L
== END 2021-03-18 12:45 | disposition home or self-care (01) ==
LOC: LBN 12:44
PROVIDERS: PCP Nurse Practitioner Family; Visit Provider Student in an Organized Health Care Education/Training Program
DX: J45.50 Severe persistent asthma, uncomplicated (principal)
CPT/HCPCS: 82785; 85025; 86003

== ENCOUNTER 2021-06-01 01:04 | Outpatient (CLI) | payer OTHER, SELFPAY ==
[2021-06-01 12:24] LABS: Abs Immature Grans 0.03 10^3/uL (0.0-0.06); Absolute Basophil Count 0.05 10^3/uL (0.0-0.2); Absolute Eosinophil Count 0.12 10^3/uL (0.0-0.7); Absolute Monocyte Count 0.53 10^3/uL (0.1-0.8); Absolute Neutrophil Count 6.75 10^3/uL (1.2-6.7); Basophils % 0.6; Eosinophils % 1.4; HCT 35.8 % (36.0-46.0); HGB 10.9 g/dL (11.2-15.7); Immature Grans % 0.4; Lymphocytes % 11.8; MCH 26.6 pg (27.0-33.0); MCHC 30.4 % (32.0-36.0); MCV 87.3 fL (80-95); MPV 9.1 fL (8.0-11.0); Monocytes % 6.3; Neutrophils % 79.5; Nucleated RBC 0 %; Platelet Count 360 10^3/uL (130-400); RDW 18.1 % (11.7-14.6); RDW-SD 56.9 fL; WBC 8.48 10^3/uL (4.4-10.8)
[2021-06-01 12:43] LABS: Iron 57 ug/dL (50-170); Total Iron Binding Capacity 355 ug/dL (250-450)
[2021-06-01 12:47] LABS: ALT 41 U/L (14-59); AST 18 U/L (15-37); Albumin 3.5 g/dL (3.4-5.0); Alkaline Phosphatase 86 U/L (46-116); Anion Gap 10.1 mmol/L (3-11); BUN 22 mg/dL (7-18); Bilirubin, Total 0.4 mg/dL (0.2-1.0); CO2 32.9 mmol/L (21.0-32.0); CREATININE 0.7 mg/dL (0.55-1.02); Chloride 99 mmol/L (98-107); Ferritin 35 ng/mL (8-252); Glucose 141 mg/dL (74-106); Potassium 3.4 mmol/L (3.5-5.1); Sodium 142 mmol/L (136-145); TSH 3.22 uIU/mL (0.36-3.74); Total Protein 7.3 g/dL (6.4-8.2)
[2021-06-01 14:00] LABS: FREE T4 1.33 ng/dL (0.76-1.46)
== END 2021-06-01 01:05 | disposition home or self-care (01) ==
LOC: LOS 01:05
PROVIDERS: PCP Nurse Practitioner Family; Visit Provider Nurse Practitioner Family
DX: D64.9 Anemia, unspecified (principal); E03.9 Hypothyroidism, unspecified; E11.9 Type 2 diabetes mellitus without complications
CPT/HCPCS: 36415; 80053; 82728; 83540; 83550; 84439; 84443; 85025

== ENCOUNTER 2021-07-06 03:36 | Outpatient (CLI) | payer OTHER, SELFPAY ==
[2021-07-06] MEDS: Albuterol HFA 18 GM 200 PUFF INH IH (11:14)
[2021-07-06] MEDS: Inhaler, Assist Device 1 EACH MC (11:15)
--- NOTE | 2021-07-06 16:41 | W.PFT ---
Date of service: 07/06/21 Time of Service: 10:03 Pulmonary Function Test Result Requesting Provider Duchene Indications: Asthma, DAVE Interpretation Spirometry: There is no airflow obstruction. There is no significant bronchodilator response. Lung Volumes: Lung volumes are normal Diffusion Capacity: Diffusion is normal Airway Pressure: Airways resistance is normal. Impression Normal pulmonary function testing Note: When compared to 12/16/20, the FEV1 and FVC are unchanged. The TLC and RV have reduced and the DLCO has decreased as well. Clinical Correlation therefore is recommended.
== END 2021-07-06 03:37 | disposition home or self-care (01) ==
LOC: RT 03:36
PROVIDERS: PCP Nurse Practitioner Family; Visit Provider Student in an Organized Health Care Education/Training Program
DX: K44.9 Diaphragmatic hernia without obstruction or gangrene (principal); J45.909 Unspecified asthma, uncomplicated; G47.33 Obstructive sleep apnea (adult) (pediatric); M35.3 Polymyalgia rheumatica; Z79.899 Other long term (current) drug therapy; R06.09 Other forms of dyspnea; Z77.22 Contact with and (suspected) exposure to environmental tobacco smoke (acute) (chronic)
CPT/HCPCS: 94060; 94726; 94729

== ENCOUNTER 2021-08-14 00:51 | Outpatient (CLI) | payer BC, SELFPAY ==
--- NOTE | 2021-08-14 11:21 | DI.MAMMO_ITS ---
Exam(s) MAMMO SCREENING EXAM: MAMMO SCREENING CLINICAL HISTORY: screening.Z12.39 TECHNIQUE: Bilateral full field digital CC and MLO mammographic images were obtained with 3D tomosyn thesis and utilizing computer aided detection (CAD). COMPARISON: Available for comparison. FINDINGS: Masses/Architectural Distortion: None seen. Microcalcifications: No suspicious pleomorphic-type are seen. Skin Thickening/Nipple Retraction: None. IMPRESSION: 1. No significant interval change with no specific features of malignancy noted. 2. Unless there is more urgent need, screening mammography is recommended, as per [employer] guidelines. BI-RADS Category 1 - Negative Breast Density - Category B - Scattered areas of fibroglandular density Breast density category C or D implies that the patient has dense breast tissue. Dense breast tissue is very common and is not abnormal but dense breast tissue can make it harder to find cancer on a ma mmogram. Also, dense breast tissue may increase their breast cancer risk. This information about the result of the mammogram report was provided to the patient to raise their awareness. Use this report when you speak with the patient about their risks for breast cancer, which includes their family hist ory. At that time, you may recommend for more screening tests (Ultrasound or MRI) as they might be us eful based on their risk. A negative radiographic report should not delay biopsy if a dominant or clinically suspicious mass is present. Up to ten percent of cancers are not identified on mammography. A negative report may reinforce clinical impression. Adenosis and dense breasts may obscure an underlying neoplasm. False positive reports average 6 to 10%. Patient will receive a letter notifying them of these results.
== END 2021-08-14 01:11 ==
PROVIDERS: PCP Nurse Practitioner Family; Visit Provider Nurse Practitioner Family
DX: Z12.31 Encounter for screening mammogram for malignant neoplasm of breast (principal)
CPT/HCPCS: 77063; 77067

== ENCOUNTER 2021-09-10 02:38 | Outpatient (CLI) | payer BC, SELFPAY ==
[2021-09-10 11:05] VITALS: BP 172/75; PULSE 89; RESP 28; TEMP 36; O2SAT 90
[2021-09-10 13:09] VITALS: BP 148/80; PULSE 84; RESP 21; TEMP 36.8; O2SAT 97
== END 2021-09-10 02:39 | disposition home or self-care (01) ==
PROVIDERS: PCP Nurse Practitioner Family; Visit Provider Family Medicine
DX: U07.1 COVID-19 (principal)
CPT/HCPCS: 96365; Q0047

== ENCOUNTER 2022-01-08 13:09 | Outpatient (REF) | payer BC, SELFPAY ==
[2022-01-08 14:10] LABS: COMMENT (LAB VIEW ONLY) 103.54 mg/dL; Microalb ug/mg Crea 19.4 ug/mg Cr
== END 2022-01-08 13:10 | disposition home or self-care (01) ==
LOC: LBN 13:09
PROVIDERS: PCP Nurse Practitioner Family; Visit Provider Family Medicine
DX: E11.9 Type 2 diabetes mellitus without complications (principal)
CPT/HCPCS: 82043; 82570

== ENCOUNTER 2022-05-14 15:33 | Outpatient (CLI) | payer BC, SELFPAY ==
[2022-05-14 14:27] LABS: HCT 32.4 % (36.0-46.0); MCH 26.1 pg (27.0-33.0); MCHC 30.9 % (32.0-36.0); MCV 85 fL (80-95); RBC 3.83 10^6/uL (3.93-5.22); RDW 19.7 % (11.7-14.6); RDW-SD 59.4 fL; WBC 10.71 10^3/uL (4.4-10.8)
[2022-05-14 14:28] LABS: Abs Immature Grans 0.09 10^3/uL (0.0-0.06); Absolute Basophil Count 0.05 10^3/uL (0.0-0.2); Absolute Eosinophil Count 0.11 10^3/uL (0.0-0.7); Absolute Monocyte Count 0.49 10^3/uL (0.1-0.8); Absolute Neutrophil Count 8.87 10^3/uL (1.2-6.7); Basophils % 0.5; Immature Grans % 0.8; Lymphocytes % 10.3; MPV 8.5 fL (8.0-11.0); Monocytes % 4.6; Neutrophils % 82.8; Platelet Count 332 10^3/uL (130-400)
[2022-05-14 14:32] LABS: ESR 84 mm/hr (0-30)
[2022-05-14 14:53] LABS: Hemoglobin A1C 7.5 % (<5.7)
[2022-05-14 17:07] LABS: ALT 27 U/L (14-59); AST 11 U/L (15-37); Albumin 3.2 g/dL (3.4-5.0); Alkaline Phosphatase 100 U/L (46-116); Anion Gap 9.5 mmol/L (3-11); BUN 18 mg/dL (7-18); Bilirubin, Total 0.3 mg/dL (0.2-1.0); CO2 29.5 mmol/L (21.0-32.0); CREATININE 0.8 mg/dL (0.55-1.02); Calcium 9.4 mg/dL (8.5-10.1); Calculated LDL 63 mg/dL (<100); Chloride 100 mmol/L (98-107); Cholesterol 127 mg/dL (<200); Estimated GFR 80.21 (mL/min/1.73m2); Glucose 143 mg/dL (74-106); HDL Cholesterol 41 mg/dL (40-60); Potassium 3.1 mmol/L (3.5-5.1); Sodium 139 mmol/L (136-145); TSH 2.45 uIU/mL (0.36-3.74); Total Protein 7.7 g/dL (6.4-8.2); Triglyceride 117 mg/dL (<150)
[2022-05-14 21:44] LABS: CRP, High Sensitivity >15.00 mg/L (See Note)
[2022-05-14 23:19] LABS: FREE T4 1.53 ng/dL (0.76-1.46)
== END 2022-05-14 15:34 | disposition home or self-care (01) ==
LOC: LBO 15:35
PROVIDERS: PCP Nurse Practitioner Family; Visit Provider Nurse Practitioner Family
DX: E03.9 Hypothyroidism, unspecified (principal); E11.40 Type 2 diabetes mellitus with diabetic neuropathy, unspecified; Z79.4 Long term (current) use of insulin; M35.3 Polymyalgia rheumatica
CPT/HCPCS: 36415; 80053; 80061; 85652; 86141; 83036; 84439; 84443; 85025

== ENCOUNTER 2022-06-04 02:18 | Outpatient (CLI) | payer BC, SELFPAY ==
[2022-06-04 15:38] LABS: Iron 22 ug/dL (50-170); Total Iron Binding Capacity 403 ug/dL (250-450)
[2022-06-04 16:03] LABS: Ferritin 33 ng/mL (8-252); Vitamin B12 788 pg/mL (193-986)
[2022-06-04 16:04] LABS: Folate > 20.0 ng/mL (8.6-20.0)
== END 2022-06-04 02:19 | disposition home or self-care (01) ==
PROVIDERS: PCP Nurse Practitioner Family; Visit Provider Nurse Practitioner Family
DX: D63.8 Anemia in other chronic diseases classified elsewhere (principal); K58.9 Irritable bowel syndrome, unspecified
CPT/HCPCS: 36415; 82607; 82728; 82746; 83540; 83550

== ENCOUNTER → 2022-06-10 02:21 | Outpatient (CLI) | payer BC, SELFPAY ==
--- NOTE | 2022-06-10 07:02 | OPPNE_ITS ---
Date of service: 06/10/22 Time of Service: 13:40 Procedure Note Date of procedure: 06/10/22 Procedure: Bilateral Hip Injection with Fluoroscopic Guidance Surgeon/Proceduralist/Physician: Viktor Cabrera Procedure Diagnosis: Bilateral Hip Osteoarthritis Procedure Indications: Aicha has had persistent pain of the BILATERAL hip and groin. Noninvasive measures have been tried. To serve as both diagnostic and therapeutic, an injection under fluoroscopy was recommended. I had discussed the risks of the procedure and the patient elected to proceed. Procedure Description: Aicha was greeted in the flouroscopy room. The consent was reviewed with the patient and signed. The patient was then placed in the supine position on the fluoroscopy table. The RIGHT hip was then prepped with Chloraprep. The anterolateral injection starting point was identiifed by bony landmarks and fluoroscopy. The skin and soft tissue in the tract of the injection was anesthetized with 1% Lidocaine. A spinal needle was then inserted deep into the hip joint at the level of the lateral femoral neck under fluoroscopic guidance. Once confirmed, the hip was injected with 5cc of 0.5% Bupivicaine and 80mg of Depo-Medrol. A bandaid was placed on the injection site. The LEFT hip was then prepped with Chloraprep. The anterolateral injection starting point was identiifed by bony landmarks and fluoroscopy. The skin and soft tissue in the tract of the injection was anesthetized with 1% Lidocaine. A spinal needle was then inserted deep into the hip joint at the level of the lateral femoral neck under fluoroscopic guidance. Once confirmed, the hip was injected with 5cc of 0.5% Bupivicaine and 80mg of Depo-Medrol. A bandaid was pl aced on the injection site. The patient tolerated the procedure well.
--- NOTE | 2022-06-10 13:24 | DI.RAD_ITS ---
Exam(s) RF JOINT INJECTION FLUORO GUID EXAM: RF JOINT INJECTION FLUORO GUID CLINICAL HISTORY: R HIP INJ UNDER FLUORO,rt hip pain, m25.551 TECHNIQUE: 2D and realtime digital imaging was performed. COMPARISON: No exams were available for comparison FINDINGS: Fluoroscopy was utilized by Dr. Cabrera during hip injection. Please see the procedure note. IMPRESSION: RADIATION DOSE DELIVERED: roxi Ryder=0.87 mGy Total DLP
--- NOTE | 2022-06-10 13:35 | DI.RAD_ITS ---
Exam(s) RF JOINT INJECTION FLUORO GUID EXAM: RF JOINT INJECTION FLUORO GUID CLINICAL HISTORY: L HIP INJ UNDER FLUORO, lt hip pain, m25.552 TECHNIQUE: 2D and realtime digital imaging was performed. COMPARISON: No exams were available for comparison FINDINGS: Fluoroscopy was utilized by Dr. Cabrera during left hip injection. Please see the procedure note. IMPRESSION: RADIATION DOSE DELIVERED: roxi Ryder=0.70 mGy Total DLP
[2022-06-10] MEDS: Bupivacaine 0.5% Pres-Free 10 ML VIAL 5 ML IJ (14:21)
== END ==
PROVIDERS: PCP Nurse Practitioner Family; Visit Provider Student in an Organized Health Care Education/Training Program
DX: M25.552 Pain in left hip (principal); M25.551 Pain in right hip
CPT/HCPCS: 20610; 77002

== ENCOUNTER 2022-08-19 02:48 | Outpatient (CLI) | payer BC, SELFPAY ==
--- NOTE | 2022-08-19 13:00 | DI.MAMMO_ITS ---
Exam(s) MAMMO SCREENING EXAM: MAMMO SCREENING CLINICAL HISTORY: screening,Z12.30 TECHNIQUE: Bilateral full field digital CC and MLO mammographic images were obtained with 3D tomosyn thesis and utilizing computer aided detection (CAD). COMPARISON: Available for comparison. FINDINGS: Masses/Architectural Distortion: There is a stable nodule in the upper outer quadrant of the left tresa ast. No suspicious nodules or areas of architectural distortion are present. Microcalcifications: No suspicious pleomorphic-type are seen. Skin Thickening/Nipple Retraction: None. IMPRESSION: 1. No significant interval change with no specific features of malignancy noted. 2. Unless there is more urgent need, screening mammography is recommended, as per [employer] guidelines. BI-RADS Category 1 - Negative Breast Density - Category B - Scattered areas of fibroglandular density Breast density category C or D implies that the patient has dense breast tissue. Dense breast tissue is very common and is not abnormal but dense breast tissue can make it harder to find cancer on a ma mmogram. Also, dense breast tissue may increase their breast cancer risk. This information about the result of the mammogram report was provided to the patient to raise their awareness. Use this report when you speak with the patient about their risks for breast cancer, which includes their family hist ory. At that time, you may recommend for more screening tests (Ultrasound or MRI) as they might be us eful based on their risk. A negative radiographic report should not delay biopsy if a dominant or clinically suspicious mass is present. Up to ten percent of cancers are not identified on mammography. A negative report may reinforce clinical impression. Adenosis and dense breasts may obscure an underlying neoplasm. False positive reports average 6 to 10%. Patient will receive a letter notifying them of these results.
--- NOTE | 2022-08-19 13:00 | DI.DEXA_ITS ---
Exam(s) XR DEXA BONE DENSITY W/WO AMOL EXAM: XR DEXA BONE DENSITY W/WO AMOL CLINICAL HISTORY: osteopenia in 2019,SCREENING FOR OSTEOPOROSIS IN POSTMENOPAUSAL WOMAN,Z78.0 TECHNIQUE: COMPARISON: CR XR DEXA BONE DENSITY W/WO AMOL from 07/19/2019 FINDINGS: Lateral Spine Image: Unremarkable. No compression deformities identified. Left hip: Total T-Score: 0.2. This compares to 0.5 on the prior examination. Total Z-Score: 1.7 T- and Z-scores: Within normal limits. Lumbar Spine: Total T-Score: -1.2. This compares to -1.7 on the prior examination. Total Z-Score: 0.8 T- and Z-scores: Findings are consistent with osteopenia. IMPRESSION: No evidence of osteoporosis.
== END 2022-08-19 03:08 ==
PROVIDERS: PCP Nurse Practitioner Family; Visit Provider Nurse Practitioner Family
DX: Z12.31 Encounter for screening mammogram for malignant neoplasm of breast (principal); Z13.820 Encounter for screening for osteoporosis; M85.88 Other specified disorders of bone density and structure, other site
CPT/HCPCS: 77063; 77067; 77080

== ENCOUNTER 2023-01-13 02:45 | Outpatient (RCR) | payer BC, SELFPAY ==
[2023-01-07] MEDS: Normal Saline Flush 10 ML SYR IVP (10:58)
[2023-01-07] MEDS: FERUMOXYTOL 510 MG in Normal Saline 50 ML 134 MG IVPB (10:58)
[2023-01-13] MEDS: Normal Saline Flush 10 ML SYR IVP (09:53)
[2023-01-13] MEDS: FERUMOXYTOL 510 MG in Normal Saline 50 ML 134 MG IVPB (09:53)
== END 2023-02-04 23:59 | disposition home or self-care (01) ==
LOC: INF 02:45
PROVIDERS: PCP Nurse Practitioner Family; Visit Provider Nurse Practitioner Acute Care
DX: D50.9 Iron deficiency anemia, unspecified (principal)
CPT/HCPCS: 96365

== ENCOUNTER 2023-01-28 16:43 | Outpatient (REF) | payer BC, SELFPAY | END 2023-01-28 16:44 | disposition home or self-care (01) | LOC: LBN 16:43 | PROVIDERS: PCP Nurse Practitioner Family; Visit Provider Nurse Practitioner Family | DX: N39.0 Urinary tract infection, site not specified (principal) | CPT/HCPCS: 87077; 87086; 87186 ==

== ENCOUNTER 2023-03-01 19:10 | Outpatient (REF) | payer BC, SELFPAY ==
[2023-03-01 12:30] LABS: Bilirubin Negative (Negative); Blood Negative (Negative); Clarity Clear (Clear); Glucose Negative (Negative); Ketones Negative (Negative); Leukocyte Esterase Small (Negative); Nitrite Negative (Negative); Specific Gravity 1.015 (1.005-1.025); Urobilinogen 0.2 mg/dL (Up to 0.2); pH 7.5 (5-8)
[2023-03-01 13:22] LABS: Bacteria Rare HPF (Negative); C & S Indicated? No/Sq. Contamination; Casts Negative LPF (Negative); Crystals Negative HPF (Negative); Epithelial Cells Moderate HPF (Negative); Mucus Negative (Negative); Other Cells Rare Renal (Negative); RBC Negative HPF (0-2); WBC 0-2 HPF (0-5)
== END 2023-03-01 19:11 | disposition home or self-care (01) ==
LOC: LBN 19:10
PROVIDERS: PCP Nurse Practitioner Family; Visit Provider Nurse Practitioner Family
DX: R35.0 Frequency of micturition (principal)
CPT/HCPCS: 81003; 81015

== ENCOUNTER 2023-03-02 03:43 | Outpatient (CLI) | payer BC, SELFPAY ==
[2023-03-02 10:50] LABS: Abs Immature Grans 0.06 10^3/uL (0.0-0.06); Absolute Basophil Count 0.06 10^3/uL (0.0-0.2); Absolute Eosinophil Count 0.07 10^3/uL (0.0-0.7); Absolute Lymphocyte Count 0.96 10^3/uL (1.2-3.4); Absolute Monocyte Count 0.48 10^3/uL (0.1-0.8); Absolute Neutrophil Count 8.88 10^3/uL (1.2-6.7); Basophils % 0.6; Eosinophils % 0.7; HCT 37.8 % (36.0-46.0); HGB 12.6 g/dL (11.2-15.7); Immature Grans % 0.6; Lymphocytes % 9.1; MCH 30.9 pg (27.0-33.0); MCHC 33.3 % (32.0-36.0); MCV 93 fL (80-95); MPV 9.2 fL (8.0-11.0); Monocytes % 4.6; Neutrophils % 84.4; Platelet Count 309 10^3/uL (130-400); RBC 4.08 10^6/uL (3.93-5.22); RDW 18.3 % (11.7-14.6); RDW-SD 62.6 fL; WBC 10.51 10^3/uL (4.4-10.8)
[2023-03-02 11:00] LABS: ESR 53 mm/hr (0-30)
[2023-03-02 11:28] LABS: Iron 73 ug/dL (50-170); Total Iron Binding Capacity 263 ug/dL (250-450)
[2023-03-02 11:37] LABS: ALT 34 U/L (14-59); AST 16 U/L (15-37); Albumin 3.3 g/dL (3.4-5.0); Alkaline Phosphatase 109 U/L (46-116); Anion Gap 8.8 mmol/L (3-11); BUN 18 mg/dL (7-18); Bilirubin, Total 0.4 mg/dL (0.2-1.0); C-Reactive Protein 3.26 mg/dL (0.0-0.3); CO2 30.2 mmol/L (21.0-32.0); CREATININE 0.7 mg/dL (0.55-1.02); Calcium 9.2 mg/dL (8.5-10.1); Chloride 101 mmol/L (98-107); Estimated GFR 93.56 (mL/min/1.73m2); Glucose 138 mg/dL (74-106); Potassium 3.2 mmol/L (3.5-5.1); Sodium 140 mmol/L (136-145); Total Protein 7.4 g/dL (6.4-8.2)
[2023-03-02 12:08] LABS: Ferritin 351 ng/mL (8-252)
[2023-03-03 09:33] LABS: Transferrin 208 mg/dL (201-352)
== END 2023-03-02 03:44 | disposition home or self-care (01) ==
LOC: LOS 03:44
PROVIDERS: PCP Nurse Practitioner Family; Visit Provider Nurse Practitioner Family
DX: Z51.81 Encounter for therapeutic drug level monitoring (principal); M35.3 Polymyalgia rheumatica
CPT/HCPCS: 80053; 85652; 82728; 83540; 83550; 84466; 85025; 86140

== ENCOUNTER 2023-03-04 20:06 | Outpatient (REF) | payer BC, SELFPAY ==
[2023-03-04 13:53] LABS: Bilirubin Negative (Negative); Blood Negative (Negative); Clarity Clear (Clear); Glucose Negative (Negative); Ketones Negative (Negative); Leukocyte Esterase Small (Negative); Nitrite Negative (Negative); Specific Gravity 1.015 (1.005-1.025); Urobilinogen 0.2 mg/dL (Up to 0.2); pH 6.5 (5-8)
[2023-03-04 14:31] LABS: Bacteria Rare HPF (Negative); Crystals Negative HPF (Negative); Epithelial Cells Rare HPF (Negative); Mucus Negative (Negative); Other Cells Rare Renal (Negative); RBC 0-2 HPF (0-2)
[2023-03-04 14:32] LABS: C & S Indicated? Yes
== END 2023-03-04 20:07 | disposition home or self-care (01) ==
LOC: LBN 20:06
PROVIDERS: PCP Nurse Practitioner Family; Visit Provider Nurse Practitioner Family
DX: R35.0 Frequency of micturition (principal)
CPT/HCPCS: 81003; 81015; 87086

== ENCOUNTER 2023-03-09 21:17 | Outpatient (REF) | payer BC, SELFPAY ==
[2023-03-09 21:25] LABS: Bilirubin Negative (Negative); Blood Trace-intact (Negative); Clarity Clear (Clear); Glucose Negative (Negative); Ketones Negative (Negative); Leukocyte Esterase Large (Negative); Nitrite Negative (Negative); Specific Gravity 1.015 (1.005-1.025); Urobilinogen 0.2 mg/dL (Up to 0.2)
[2023-03-09 22:26] LABS: Bacteria Negative HPF (Negative); C & S Indicated? C&S Done As Ordered; Crystals Negative HPF (Negative); Epithelial Cells Moderate HPF (Negative); Mucus Negative (Negative); Other Cells Rare Transitional (Negative); RBC 0-2 HPF (0-2)
== END 2023-03-09 21:18 | disposition home or self-care (01) ==
LOC: LBN 21:17
PROVIDERS: PCP Nurse Practitioner Family; Visit Provider Nurse Practitioner Family
DX: R30.0 Dysuria (principal)
CPT/HCPCS: 81003; 81015; 87086

== ENCOUNTER 2023-05-06 03:32 | Outpatient (CLI) | payer MEDICARE, SELFPAY ==
[2023-05-06 12:33] LABS: Abs Immature Grans 0.08 10^3/uL (0.0-0.06); Absolute Basophil Count 0.06 10^3/uL (0.0-0.2); Absolute Eosinophil Count 0.08 10^3/uL (0.0-0.7); Absolute Neutrophil Count 9.92 10^3/uL (1.2-6.7); Basophils % 0.5; Eosinophils % 0.7; HCT 40.3 % (36.0-46.0); HGB 13.3 g/dL (11.2-15.7); Immature Grans % 0.7; Lymphocytes % 7.8; MCH 31.7 pg (27.0-33.0); MCV 96 fL (80-95); MPV 9.4 fL (8.0-11.0); Monocytes % 4.7; Neutrophils % 85.6; Platelet Count 314 10^3/uL (130-400); RBC 4.19 10^6/uL (3.93-5.22); RDW 14.3 % (11.7-14.6); RDW-SD 49.7 fL; WBC 11.59 10^3/uL (4.4-10.8)
[2023-05-06 12:36] LABS: Absolute Monocyte Count 0.54 10^3/uL (0.1-0.8)
[2023-05-06 12:45] LABS: Hemoglobin A1C 7.3 % (<5.7)
[2023-05-06 12:53] LABS: Anion Gap 8.1 mmol/L (3-11); BUN 21 mg/dL (7-18); CO2 31.9 mmol/L (21.0-32.0); CREATININE 0.8 mg/dL (0.55-1.02); Calcium 9.8 mg/dL (8.5-10.1); Chloride 98 mmol/L (98-107); Estimated GFR 79.71 (mL/min/1.73m2); Ferritin 367 ng/mL (8-252); Glucose 147 mg/dL (74-106); Sodium 138 mmol/L (136-145); TSH (W/Ref FT4) 1.64 uIU/mL (0.36-3.74)
== END 2023-05-06 03:33 | disposition home or self-care (01) ==
LOC: LOS 03:32
PROVIDERS: PCP Nurse Practitioner Family; Visit Provider Nurse Practitioner Family
DX: E11.40 Type 2 diabetes mellitus with diabetic neuropathy, unspecified (principal); Z79.4 Long term (current) use of insulin; D50.9 Iron deficiency anemia, unspecified; I10 Essential (primary) hypertension; E03.9 Hypothyroidism, unspecified
CPT/HCPCS: 36415; 80048; 82728; 83036; 84443; 85025

== ENCOUNTER 2023-05-27 02:22 | Outpatient (CLI) | payer MEDICARE, SELFPAY ==
[2023-05-27 12:17] LABS: Abs Immature Grans 0.08 10^3/uL (0.0-0.06); Absolute Basophil Count 0.05 10^3/uL (0.0-0.2); Absolute Eosinophil Count 0.08 10^3/uL (0.0-0.7); Absolute Lymphocyte Count 0.86 10^3/uL (1.2-3.4); Absolute Monocyte Count 0.45 10^3/uL (0.1-0.8); Absolute Neutrophil Count 8.91 10^3/uL (1.2-6.7); Basophils % 0.5; Eosinophils % 0.8; HCT 39.9 % (36.0-46.0); HGB 12.8 g/dL (11.2-15.7); Immature Grans % 0.8; Lymphocytes % 8.2; MCH 31.1 pg (27.0-33.0); MCHC 32.1 % (32.0-36.0); MCV 97 fL (80-95); Monocytes % 4.3; Neutrophils % 85.4; Platelet Count 301 10^3/uL (130-400); RBC 4.11 10^6/uL (3.93-5.22); RDW 14.5 % (11.7-14.6); RDW-SD 50.8 fL; WBC 10.43 10^3/uL (4.4-10.8)
[2023-05-27 12:33] LABS: ALT 32 U/L (14-59); AST 14 U/L (15-37); Albumin 3.2 g/dL (3.4-5.0); Alkaline Phosphatase 99 U/L (46-116); Anion Gap 7.3 mmol/L (3-11); BUN 15 mg/dL (7-18); Bilirubin, Total 0.3 mg/dL (0.2-1.0); C-Reactive Protein 2.29 mg/dL (0.0-0.3); CO2 27.7 mmol/L (21.0-32.0); CREATININE 0.7 mg/dL (0.55-1.02); Calcium 9.5 mg/dL (8.5-10.1); Chloride 103 mmol/L (98-107); Estimated GFR 93.56 (mL/min/1.73m2); Glucose 119 mg/dL (74-106); Sodium 138 mmol/L (136-145); Total Protein 7.5 g/dL (6.4-8.2)
[2023-05-27 17:43] LABS: ESR (LRH) 68 mm/hr
[2023-05-30 12:45] LABS: Hepatitis C Ab w Rflx HCV PCR Negative (Negative)
== END 2023-05-27 02:23 | disposition home or self-care (01) ==
PROVIDERS: Physician Assistant Medical; PCP Nurse Practitioner Family; Visit Provider Nurse Practitioner Family
DX: Z00.00 Encounter for general adult medical examination without abnormal findings; E87.6 Hypokalemia; M35.3 Polymyalgia rheumatica; Z79.899 Other long term (current) drug therapy
CPT/HCPCS: 36415; 80048; 80053; 85652; 86803; 85025; 86140

== ENCOUNTER → 2023-05-30 09:56 | Outpatient (BNVA) | payer MEDICARE, SELFPAY | PROVIDERS: PCP Nurse Practitioner Family; Referring Provider Nurse Practitioner Family; Visit Provider Physician Assistant Surgical | DX: Z79.51 Long term (current) use of inhaled steroids (principal); Z79.899 Other long term (current) drug therapy; E11.42 Type 2 diabetes mellitus with diabetic polyneuropathy; J45.50 Severe persistent asthma, uncomplicated; M35.3 Polymyalgia rheumatica; G47.33 Obstructive sleep apnea (adult) (pediatric) | CPT/HCPCS: 99214 ==

== ENCOUNTER 2023-08-19 04:34 | Outpatient (CLI) | payer OTHER, SELFPAY ==
[2023-08-19 12:48] LABS: Abs Immature Grans 0.08 10^3/uL (0.0-0.06); Absolute Basophil Count 0.08 10^3/uL (0.0-0.2); Absolute Lymphocyte Count 1.12 10^3/uL (1.2-3.4); Absolute Monocyte Count 0.65 10^3/uL (0.1-0.8); Absolute Neutrophil Count 9.61 10^3/uL (1.2-6.7); Basophils % 0.7; Eosinophils % 0.9; HCT 39.6 % (36.0-46.0); HGB 12.7 g/dL (11.2-15.7); Immature Grans % 0.7; Lymphocytes % 9.6; MCH 30.2 pg (27.0-33.0); MCHC 32.1 % (32.0-36.0); MCV 94 fL (80-95); MPV 9.3 fL (8.0-11.0); Monocytes % 5.6; Neutrophils % 82.5; Platelet Count 283 10^3/uL (130-400); RBC 4.21 10^6/uL (3.93-5.22); RDW 13.7 % (11.7-14.6); RDW-SD 46.8 fL; WBC 11.65 10^3/uL (4.4-10.8)
[2023-08-19 12:58] LABS: ESR 42 mm/hr (0-30)
[2023-08-19 13:18] LABS: ALT 27 U/L (14-59); AST 8 U/L (15-37); Albumin 3.3 g/dL (3.4-5.0); Alkaline Phosphatase 109 U/L (46-116); Anion Gap 8.7 mmol/L (3-11); BUN 16 mg/dL (7-18); Bilirubin, Total 0.3 mg/dL (0.2-1.0); C-Reactive Protein 2.51 mg/dL (0.0-0.3); CO2 26.3 mmol/L (21.0-32.0); CREATININE 0.8 mg/dL (0.55-1.02); Calcium 9.4 mg/dL (8.5-10.1); Chloride 104 mmol/L (98-107); Estimated GFR 79.71 (mL/min/1.73m2); Ferritin 188 ng/mL (8-252); Glucose 103 mg/dL (74-106); Sodium 139 mmol/L (136-145); Total Protein 7.5 g/dL (6.4-8.2)
== END 2023-08-19 04:35 | disposition home or self-care (01) ==
LOC: LOS 04:34
PROVIDERS: Physician Assistant Medical; PCP Nurse Practitioner Family; Visit Provider Nurse Practitioner Family
DX: D50.9 Iron deficiency anemia, unspecified (principal)
CPT/HCPCS: 36415; 80053; 85652; 82728; 85025; 86140

== ENCOUNTER → 2023-08-22 04:28 | Outpatient (CLI) | payer OTHER, SELFPAY ==
--- NOTE | 2023-08-22 10:48 | DI.MAMMO_ITS ---
Exam(s) MAMMO SCREENING EXAM: MAMMO SCREENING CLINICAL HISTORY: screening,Z12.39 TECHNIQUE: Mammograms were interpreted according to the usual protocol including computer analysis w [employer] CAD system, tomosynthesis and C-view imaging. COMPARISON: 2013 through 2022 FINDINGS: The breasts are composed of scattered fibroglandular densities, Breast Density category B. No suspicious masses or suspicious microcalcifications are seen. No skin thickening or abnormal axillary lymph nodes are seen. There has been no significant change from prior exams. IMPRESSION: BI-RADS Category 1, Negative mammogram Yearly screening mammography is recommended. Breast Density - Category B, scattered fibroglandular densities. A negative radiographic report should not delay biopsy if a dominant or clinically suspicious mass is present. Up to ten percent of cancers are not identified on mammography. A negative report may reinforce clinical impression. Adenosis and dense breasts may obscure an underlying neoplasm. False positive reports average 6 to 10%. Patient will receive a letter notifying them of these results.
== END ==
PROVIDERS: PCP Nurse Practitioner Family; Visit Provider Nurse Practitioner Family
DX: Z12.31 Encounter for screening mammogram for malignant neoplasm of breast (principal)
CPT/HCPCS: 77063; 77067

== ENCOUNTER 2024-02-20 21:50 | Outpatient (REF) | payer OTHER, SELFPAY ==
[2024-02-20 21:46] LABS: COMMENT (LAB VIEW ONLY) 94.24 mg/dL; Microalb ug/mg Crea 16.9 ug/mg Cr
== END 2024-02-20 21:51 | disposition home or self-care (01) ==
LOC: LBN 21:50
PROVIDERS: PCP Nurse Practitioner Family; Visit Provider Nurse Practitioner Family
DX: E11.9 Type 2 diabetes mellitus without complications (principal)
CPT/HCPCS: 82043; 82570

== ENCOUNTER 2024-03-05 02:37 | Outpatient (CLI) | payer OTHER, SELFPAY ==
[2024-03-05 13:47] LABS: ESR 27 mm/hr (0-30)
[2024-03-05 13:48] LABS: Abs Immature Grans 0.08 10^3/uL (0.0-0.06); Absolute Basophil Count 0.04 10^3/uL (0.0-0.2); Absolute Eosinophil Count 0.06 10^3/uL (0.0-0.7); Absolute Lymphocyte Count 0.82 10^3/uL (1.2-3.4); Absolute Monocyte Count 0.51 10^3/uL (0.1-0.8); Absolute Neutrophil Count 11.26 10^3/uL (1.2-6.7); Basophils % 0.3 %; Eosinophils % 0.5 %; HGB 12.7 g/dL (11.2-15.7); Immature Grans % 0.6 %; Lymphocytes % 6.4 %; MCHC 32.6 % (32.0-36.0); MCV 95 fL (80-95); MPV 8.8 fL (8.0-11.0); Neutrophils % 88.2 %; Platelet Count 275 10^3/uL (130-400); RDW 15.3 % (11.7-14.6); WBC 12.77 10^3/uL (4.4-10.8)
[2024-03-05 14:41] LABS: ALT 27 U/L (14-59); AST 7 U/L (15-37); Albumin 3.4 g/dL (3.4-5.0); Alkaline Phosphatase 114 U/L (46-116); Anion Gap 10.3 mmol/L (3-11); BUN 16 mg/dL (7-18); Bilirubin, Total 0.39 mg/dL (0.2-1.0); C-Reactive Protein 2.38 mg/dL (<or=0.5); CO2 29.7 mmol/L (21.0-32.0); CREATININE 0.8 mg/dL (0.55-1.02); Calcium 9.2 mg/dL (8.5-10.1); Chloride 105 mmol/L (98-107); Estimated GFR 79.22 (mL/min/1.73m2); Glucose 133 mg/dL (74-106); Potassium 4.5 mmol/L (3.5-5.1); Sodium 145 mmol/L (136-145); Total Protein 6.9 g/dL (6.4-8.2)
[2024-03-06 09:46] LABS: HBs Antibody, Quant <3.1 mIU/mL (See Note); Hepatitis B Surface Ab Negative (See Note)
[2024-03-06 10:10] LABS: Hepatitis B Surface Ag Negative (Negative)
[2024-03-06 10:30] LABS: Hep B Core Antibody Negative (Negative)
[2024-03-06 11:02] LABS: Hepatitis C Ab w Rflx HCV PCR Negative (Negative)
[2024-03-07 11:36] LABS: TB Interpretation Negative (Negative)
== END 2024-03-05 02:38 | disposition home or self-care (01) ==
LOC: LBO 02:37
PROVIDERS: PCP Nurse Practitioner Family; Visit Provider Nurse Practitioner Family
DX: Z79.899 Other long term (current) drug therapy (principal); M19.90 Unspecified osteoarthritis, unspecified site; M35.3 Polymyalgia rheumatica
CPT/HCPCS: 36415; 80053; 85652; 86704; 86706; 86803; 87340; 85025; 86140; 86480

== ENCOUNTER 2024-05-03 02:53 | Outpatient (CLI) | payer MEDICARE, SELFPAY ==
[2024-05-03 12:29] LABS: ESR 26 mm/hr (0-30)
[2024-05-03 12:30] LABS: Abs Immature Grans 0.04 10^3/uL (0.0-0.06); Absolute Basophil Count 0.05 10^3/uL (0.0-0.2); Absolute Eosinophil Count 0.07 10^3/uL (0.0-0.7); Absolute Lymphocyte Count 0.76 10^3/uL (1.2-3.4); Absolute Monocyte Count 0.33 10^3/uL (0.1-0.8); Absolute Neutrophil Count 4.79 10^3/uL (1.2-6.7); Basophils % 0.8 %; Eosinophils % 1.2 %; HCT 40.5 % (36.0-46.0); HGB 13.1 g/dL (11.2-15.7); Immature Grans % 0.7 %; Lymphocytes % 12.6 %; MCHC 32.3 % (32.0-36.0); MCV 96 fL (80-95); MPV 9.1 fL (8.0-11.0); Monocytes % 5.5 %; Neutrophils % 79.2 %; Platelet Count 298 10^3/uL (130-400); RBC 4.22 10^6/uL (3.93-5.22); RDW 15.8 % (11.7-14.6); RDW-SD 54.6 fL; WBC 6.04 10^3/uL (4.4-10.8)
[2024-05-03 12:48] LABS: ALT 31 U/L (14-59); AST 9 U/L (15-37); Albumin 3.5 g/dL (3.4-5.0); Alkaline Phosphatase 105 U/L (46-116); Anion Gap 7.2 mmol/L (3-11); BUN 22 mg/dL (7-18); Bilirubin, Total 0.33 mg/dL (0.2-1.0); CO2 27.8 mmol/L (21.0-32.0); Calcium 9.3 mg/dL (8.5-10.1); Chloride 101 mmol/L (98-107); Estimated GFR 60.61 (mL/min/1.73m2); Glucose 117 mg/dL (74-106); Potassium 4.2 mmol/L (3.5-5.1); Sodium 136 mmol/L (136-145); Total Protein 7.6 g/dL (6.4-8.2)
[2024-05-03 12:49] LABS: C-Reactive Protein < 0.50 mg/dL (<or=0.5)
== END 2024-05-03 02:54 | disposition home or self-care (01) ==
LOC: LOS 02:53
PROVIDERS: Nurse Practitioner Family; PCP Nurse Practitioner Family; Visit Provider Nurse Practitioner Family
DX: Z79.899 Other long term (current) drug therapy (principal)
CPT/HCPCS: 36415; 80053; 85652; 85025; 86140

== ENCOUNTER → 2024-05-11 08:04 | Outpatient (BNVA) | payer MEDICARE, SELFPAY | PROVIDERS: PCP Nurse Practitioner Family; Referring Provider Nurse Practitioner Family; Visit Provider Physician Assistant | DX: M25.851 Other specified joint disorders, right hip (principal); M25.852 Other specified joint disorders, left hip | CPT/HCPCS: 20611; J1010 ==

== ENCOUNTER 2024-05-21 19:15 | Outpatient (REF) | payer MEDICARE, SELFPAY ==
[2024-05-21 21:36] LABS: TSH (W/Ref FT4) 0.12 uIU/mL (0.36-3.74)
[2024-05-21 21:54] LABS: FREE T4 1.57 ng/dL (0.76-1.46)
== END 2024-05-21 19:16 | disposition home or self-care (01) ==
LOC: NCHCN 19:15
PROVIDERS: PCP Nurse Practitioner Family; Visit Provider Nurse Practitioner Family
DX: E03.9 Hypothyroidism, unspecified (principal)
CPT/HCPCS: 84439; 84443

== ENCOUNTER → 2024-05-28 11:02 | Outpatient (BNVA) | payer MEDICARE, SELFPAY | PROVIDERS: PCP Nurse Practitioner Family; Referring Provider Nurse Practitioner Family; Visit Provider Physician Assistant Surgical | DX: M35.3 Polymyalgia rheumatica (principal); J45.50 Severe persistent asthma, uncomplicated; K44.9 Diaphragmatic hernia without obstruction or gangrene; G47.33 Obstructive sleep apnea (adult) (pediatric) | CPT/HCPCS: 99214 ==

== ENCOUNTER 2024-07-16 02:55 | Outpatient (CLI) | payer MEDICARE, SELFPAY ==
[2024-07-16 12:26] LABS: Abs Immature Grans 0.05 10^3/uL (0.0-0.06); Absolute Basophil Count 0.04 10^3/uL (0.0-0.2); Absolute Eosinophil Count 0.07 10^3/uL (0.0-0.7); Absolute Lymphocyte Count 0.52 10^3/uL (1.2-3.4); Absolute Monocyte Count 0.51 10^3/uL (0.1-0.8); Absolute Neutrophil Count 5.28 10^3/uL (1.2-6.7); Basophils % 0.6 %; Eosinophils % 1.1 %; HCT 35.5 % (36.0-46.0); HGB 11.9 g/dL (11.2-15.7); Immature Grans % 0.8 %; MCH 32.9 pg (27.0-33.0); MCHC 33.5 % (32.0-36.0); MCV 98 fL (80-95); MPV 9.2 fL (8.0-11.0); Monocytes % 7.9 %; Neutrophils % 81.6 %; Platelet Count 284 10^3/uL (130-400); RBC 3.62 10^6/uL (3.93-5.22); RDW 15.1 % (11.7-14.6); RDW-SD 54.1 fL; WBC 6.47 10^3/uL (4.4-10.8)
[2024-07-16 12:31] LABS: ESR 27 mm/hr (0-30)
[2024-07-16 12:41] LABS: ALT 22 U/L (14-59); AST 8 U/L (15-37); Albumin 3.3 g/dL (3.4-5.0); Alkaline Phosphatase 97 U/L (46-116); Anion Gap 7.7 mmol/L (3-11); BUN 20 mg/dL (7-18); Bilirubin, Total 0.46 mg/dL (0.2-1.0); C-Reactive Protein 3.15 mg/dL (<or=0.5); CO2 28.3 mmol/L (21.0-32.0); CREATININE 0.8 mg/dL (0.55-1.02); Calcium 9.4 mg/dL (8.5-10.1); Chloride 105 mmol/L (98-107); Estimated GFR 79.22 (mL/min/1.73m2); Glucose 127 mg/dL (74-106); Potassium 4.5 mmol/L (3.5-5.1); Sodium 141 mmol/L (136-145); Total Protein 7.3 g/dL (6.4-8.2)
[2024-07-16 12:45] LABS: TSH (W/Ref FT4) 0.16 uIU/mL (0.36-3.74)
[2024-07-16 13:01] LABS: FREE T4 1.47 ng/dL (0.76-1.46)
== END 2024-07-16 02:56 | disposition home or self-care (01) ==
LOC: LOS 02:55
PROVIDERS: Nurse Practitioner Family; PCP Nurse Practitioner Family; Visit Provider Nurse Practitioner Family
DX: E03.9 Hypothyroidism, unspecified (principal); Z79.899 Other long term (current) drug therapy; M19.90 Unspecified osteoarthritis, unspecified site; M35.3 Polymyalgia rheumatica; M06.00 Rheumatoid arthritis without rheumatoid factor, unspecified site
CPT/HCPCS: 36415; 80053; 85652; 84439; 84443; 85025; 86140

== ENCOUNTER 2024-07-24 03:15 | Outpatient (CLI) | payer MEDICARE, SELFPAY ==
[2024-07-24 18:36] LABS: Thyroglobulin Antibody <15 U/mL (<=60); Thyroperoxidase Antibody 33 U/mL (<=60)
== END 2024-07-24 03:16 | disposition home or self-care (01) ==
LOC: LOS 03:15
PROVIDERS: PCP Nurse Practitioner Family; Visit Provider Nurse Practitioner Family
DX: E03.9 Hypothyroidism, unspecified (principal)
CPT/HCPCS: 36415; 86376

== ENCOUNTER 2024-07-30 10:47 | Outpatient (REF) | payer MEDICARE, SELFPAY | END 2024-07-30 10:48 | disposition home or self-care (01) | LOC: LBN 10:47 | PROVIDERS: PCP Nurse Practitioner Family; Visit Provider Nurse Practitioner Family | DX: N39.0 Urinary tract infection, site not specified (principal) | CPT/HCPCS: 87077; 87086; 87186 ==

== ENCOUNTER 2024-08-14 11:08 | Outpatient (CLI) | payer MEDICARE, SELFPAY ==
[2024-08-14 12:55] LABS: Abs Immature Grans 0.02 10^3/uL (0.0-0.06); Absolute Basophil Count 0.03 10^3/uL (0.0-0.2); Absolute Eosinophil Count 0.04 10^3/uL (0.0-0.7); Absolute Lymphocyte Count 0.52 10^3/uL (1.2-3.4); Absolute Neutrophil Count 3.28 10^3/uL (1.2-6.7); Basophils % 0.7 %; HCT 40.5 % (36.0-46.0); HGB 13.3 g/dL (11.2-15.7); Immature Grans % 0.5 %; Lymphocytes % 12.4 %; MCH 32.7 pg (27.0-33.0); MCHC 32.8 % (32.0-36.0); MCV 100 fL (80-95); MPV 9.3 fL (8.0-11.0); Monocytes % 7.2 %; Neutrophils % 78.2 %; Platelet Count 258 10^3/uL (130-400); RBC 4.07 10^6/uL (3.93-5.22); RDW 14.5 % (11.7-14.6); RDW-SD 52.5 fL; WBC 4.19 10^3/uL (4.4-10.8)
[2024-08-14 13:06] LABS: ALT 43 U/L (14-59); AST 15 U/L (15-37); Albumin 3.8 g/dL (3.4-5.0); Alkaline Phosphatase 103 U/L (46-116); Anion Gap 7.1 mmol/L (3-11); BUN 24 mg/dL (7-18); Bilirubin, Total 0.39 mg/dL (0.2-1.0); C-Reactive Protein 0.73 mg/dL (<or=0.5); CO2 28.9 mmol/L (21.0-32.0); CREATININE 0.8 mg/dL (0.55-1.02); Calcium 9.6 mg/dL (8.5-10.1); Chloride 104 mmol/L (98-107); Estimated GFR 79.22 (mL/min/1.73m2); Glucose 131 mg/dL (74-106); NT-proBNP 34 pg/mL (<300); Potassium 4.8 mmol/L (3.5-5.1); Sodium 140 mmol/L (136-145); Total Protein 7.1 g/dL (6.4-8.2)
[2024-08-14 17:17] LABS: Lab Add On Test DONE
[2024-08-14 18:05] LABS: Vitamin B12 908 pg/mL (193-986)
== END 2024-08-14 11:09 | disposition home or self-care (01) ==
LOC: LOS 11:08
PROVIDERS: PCP Nurse Practitioner Family; Referring Provider Nurse Practitioner Family; Visit Provider Nurse Practitioner Family
DX: R06.00 Dyspnea, unspecified (principal); R60.0 Localized edema; M35.3 Polymyalgia rheumatica; D63.8 Anemia in other chronic diseases classified elsewhere; N39.0 Urinary tract infection, site not specified
CPT/HCPCS: 36415; 80053; 82607; 83880; 85025; 86140; 87086

== ENCOUNTER 2024-08-27 01:30 | Outpatient (CLI) | payer MEDICARE, SELFPAY ==
--- NOTE | 2024-08-27 11:20 | DI.MAMMO_ITS ---
Exam(s) MG MAMMO SCREENING 60 MIN DUR EXAM: MG MAMMO SCREENING 60 MIN DUR CLINICAL HISTORY: breast cancer screening,Z12.39. TECHNIQUE: Bilateral full field digital CC and MLO mammographic images were obtained with 3D tomosyn thesis and utilizing computer aided detection (CAD). COMPARISON: Prior mammograms were reviewed. FINDINGS: There has been no significant change in the appearance and distribution of the fibroglandular tissue. There is continued stable appearance of a small benign-appearing nodule towards the upper outer quadr ant of the left breast, unchanged from at least 2015. There are no new spiculated masses nor new malignant appearing microcalcification groups. There is no significant architectural distortion nor skin thickening-retraction. IMPRESSION: No radiographic evidence of malignancy. BI-RADS Category 1 - Negative Breast Density - Category B - Scattered areas of fibroglandular density Breast density Category C or D implies that the patient has dense breast tissue. Dense breast tissue can make it harder to find cancer on a mammogram. Dense breast tissue is also associated with an incr eased risk of breast cancer. This information about the result of the mammogram report was provided to the patient to raise their awareness. Use this report when you speak with the patient about their risks for breast cancer, which includes their family history. At that time, you may recommend additional screening tests (Ultrasoun d or MRI) as these tests may add significant information. A negative radiographic report should not delay biopsy if a dominant or clinically suspicious mass is present. Up to ten percent of cancers are not identified on mammography. A negative report may reinforce clinical impression. Adenosis and dense breasts may obscure an underlying neoplasm. False positive reports average 6 to 10%. Patient will receive a letter notifying them of these results.
== END 2024-08-27 01:50 ==
PROVIDERS: PCP Nurse Practitioner Family; Visit Provider Nurse Practitioner Family
DX: Z12.31 Encounter for screening mammogram for malignant neoplasm of breast (principal); R92.323 Mammographic fibroglandular density, bilateral breasts
CPT/HCPCS: 77063; 77067

== ENCOUNTER 2024-09-11 00:48 | Outpatient (CLI) | payer MEDICARE, SELFPAY ==
[2024-09-11 10:29] LABS: Lab Add On Test DONE
[2024-09-11 12:53] LABS: TSH (W/Ref FT4) 3.48 uIU/mL (0.36-3.74)
[2024-09-11 12:55] LABS: Folate > 20.0 ng/mL (8.6-20.0)
== END 2024-09-11 00:49 | disposition home or self-care (01) ==
PROVIDERS: PCP Nurse Practitioner Family; Visit Provider Nurse Practitioner Family
DX: E03.9 Hypothyroidism, unspecified (principal); D75.89 Other specified diseases of blood and blood-forming organs
CPT/HCPCS: 36415; 82746; 84443

== ENCOUNTER 2024-10-22 01:56 | Outpatient (CLI) | payer MEDICARE, SELFPAY ==
[2024-10-22 12:18] LABS: Bilirubin Negative (Negative); Blood Negative (Negative); Clarity Clear (Clear); Glucose Negative (Negative); Ketones Negative (Negative); Leukocyte Esterase Negative (Negative); Nitrite Negative (Negative); Specific Gravity >= 1.030 (1.005-1.025); Urobilinogen 0.2 mg/dL (Up to 0.2); pH 5.5 (5-8)
[2024-10-22 12:20] LABS: ESR 15 mm/hr (0-30)
[2024-10-22 12:21] LABS: Abs Immature Grans 0.03 10^3/uL (0.0-0.06); Absolute Basophil Count 0.04 10^3/uL (0.0-0.2); Absolute Eosinophil Count 0.09 10^3/uL (0.0-0.7); Absolute Lymphocyte Count 0.61 10^3/uL (1.2-3.4); Absolute Monocyte Count 0.57 10^3/uL (0.1-0.8); Absolute Neutrophil Count 5.85 10^3/uL (1.2-6.7); Basophils % 0.6 %; Eosinophils % 1.3 %; HCT 37.6 % (36.0-46.0); HGB 12.7 g/dL (11.2-15.7); Immature Grans % 0.4 %; Lymphocytes % 8.5 %; MCH 33.4 pg (27.0-33.0); MCHC 33.8 % (32.0-36.0); MCV 99 fL (80-95); MPV 9.5 fL (8.0-11.0); Monocytes % 7.9 %; Neutrophils % 81.3 %; Platelet Count 231 10^3/uL (130-400); RDW 14.5 % (11.7-14.6); RDW-SD 51.6 fL; WBC 7.19 10^3/uL (4.4-10.8)
[2024-10-22 12:46] LABS: ALT 27 U/L (14-59); AST 7 U/L (15-37); Albumin 3.5 g/dL (3.4-5.0); Alkaline Phosphatase 92 U/L (46-116); Anion Gap 6.4 mmol/L (3-11); BUN 15 mg/dL (7-18); Bilirubin, Total 0.5 mg/dL (0.2-1.0); C-Reactive Protein 2.28 mg/dL (<or=0.5); CO2 27.6 mmol/L (21.0-32.0); CREATININE 0.8 mg/dL (0.55-1.02); Calcium 9.3 mg/dL (8.5-10.1); Chloride 105 mmol/L (98-107); Estimated GFR 78.72 (mL/min/1.73m2); Glucose 122 mg/dL (74-106); Potassium 4.5 mmol/L (3.5-5.1); Sodium 139 mmol/L (136-145); Total Protein 7.2 g/dL (6.4-8.2)
== END 2024-10-22 01:57 | disposition home or self-care (01) ==
LOC: LOS 01:56
PROVIDERS: PCP Nurse Practitioner Family; Visit Provider Nurse Practitioner Family
DX: Z79.899 Other long term (current) drug therapy (principal); R31.9 Hematuria, unspecified
CPT/HCPCS: 36415; 80053; 85652; 81003; 85025; 86140

== ENCOUNTER → 2024-10-25 15:14 | Outpatient (BNVA) | payer MEDICARE, SELFPAY | PROVIDERS: PCP Nurse Practitioner Family; Referring Provider Nurse Practitioner Family; Visit Provider Podiatrist | DX: L60.0 Ingrowing nail (principal); E11.40 Type 2 diabetes mellitus with diabetic neuropathy, unspecified; Z79.4 Long term (current) use of insulin; R60.0 Localized edema; M20.41 Other hammer toe(s) (acquired), right foot; M20.42 Other hammer toe(s) (acquired), left foot; L65.9 Nonscarring hair loss, unspecified; L60.2 Onychogryphosis; R20.2 Paresthesia of skin; R25.2 Cramp and spasm | CPT/HCPCS: 11720; 99213 ==

== ENCOUNTER 2024-11-23 13:24 | Outpatient (REF) | payer MEDICARE, SELFPAY ==
[2024-11-23 20:54] LABS: HGB 13.9 g/dL (11.2-15.7); MCH 33.3 pg (27.0-33.0); MCHC 33.1 % (32.0-36.0); MCV 101 fL (80-95); MPV 9.4 fL (8.0-11.0); Platelet Count 269 10^3/uL (130-400); RBC 4.18 10^6/uL (3.93-5.22); RDW 14.1 % (11.7-14.6); RDW-SD 51.6 fL
[2024-11-23 20:58] LABS: Anion Gap 6.6 mmol/L (3-11); BUN 18 mg/dL (7-18); CO2 28.4 mmol/L (21.0-32.0); CREATININE 0.9 mg/dL (0.55-1.02); Calcium 9.5 mg/dL (8.5-10.1); Chloride 106 mmol/L (98-107); Estimated GFR 68.35 (mL/min/1.73m2); Glucose 91 mg/dL (74-106); Potassium 4.9 mmol/L (3.5-5.1); Sodium 141 mmol/L (136-145)
== END 2024-11-23 13:25 | disposition home or self-care (01) ==
LOC: LBN 13:24
PROVIDERS: PCP Nurse Practitioner Family; Visit Provider Nurse Practitioner Family
DX: E11.40 Type 2 diabetes mellitus with diabetic neuropathy, unspecified (principal); D63.8 Anemia in other chronic diseases classified elsewhere
CPT/HCPCS: 80048; 85027

== ENCOUNTER → 2024-11-27 10:05 | Outpatient (BNVA) | payer MEDICARE, SELFPAY | PROVIDERS: PCP Nurse Practitioner Family; Referring Provider Nurse Practitioner Family; Visit Provider Physician Assistant Surgical | DX: J45.50 Severe persistent asthma, uncomplicated (principal); M35.3 Polymyalgia rheumatica; K44.9 Diaphragmatic hernia without obstruction or gangrene; G47.33 Obstructive sleep apnea (adult) (pediatric) | CPT/HCPCS: 99214 ==

== ENCOUNTER 2025-02-22 01:04 | Outpatient (CLI) | payer MEDICARE, SELFPAY ==
[2025-02-22 12:21] LABS: Abs Immature Grans 0.03 10^3/uL (0.0-0.06); HCT 41.0 % (36.0-46.0); HGB 13.9 g/dL (11.2-15.7); Immature Grans % 0.3 %; MCH 32.9 pg (27.0-33.0); MCHC 33.9 % (32.0-36.0); MCV 97 fL (80-95); MPV 9.5 fL (8.0-11.0); Platelet Count 210 10^3/uL (130-400); RBC 4.22 10^6/uL (3.93-5.22); RDW 13.1 % (11.7-14.6); RDW-SD 46.5 fL; WBC 10.54 10^3/uL (4.4-10.8)
[2025-02-22 12:28] LABS: ESR 6 mm/hr (0-30)
[2025-02-22 12:48] LABS: ALT 36 U/L (14-59); AST 10 U/L (15-37); Albumin 3.9 g/dL (3.4-5.0); Alkaline Phosphatase 85 U/L (46-116); Anion Gap 12.5 mmol/L (3-11); BUN 19 mg/dL (7-18); Bilirubin, Total 0.5 mg/dL (0.2-1.0); C-Reactive Protein < 0.50 mg/dL (<or=0.5); CO2 25.5 mmol/L (21.0-32.0); Calcium 9.4 mg/dL (8.5-10.1); Chloride 103 mmol/L (98-107); Estimated GFR 92.41 (mL/min/1.73m2); Glucose 132 mg/dL (74-106); Potassium 4.3 mmol/L (3.5-5.1); Sodium 141 mmol/L (136-145); Total Protein 7.0 g/dL (6.4-8.2)
[2025-02-22 12:58] LABS: TSH 0.69 uIU/mL (0.36-3.74)
== END 2025-02-22 01:05 | disposition home or self-care (01) ==
LOC: LOS 01:04
PROVIDERS: Nurse Practitioner Family; PCP Nurse Practitioner Family; Visit Provider Nurse Practitioner Family
DX: E03.9 Hypothyroidism, unspecified (principal)
CPT/HCPCS: 36415; 80053; 85652; 84443; 85025; 86140

== ENCOUNTER → 2025-05-02 15:01 | Outpatient (BNVA) | payer MEDICARE, SELFPAY | PROVIDERS: PCP Nurse Practitioner Family; Referring Provider Nurse Practitioner Family; Visit Provider Podiatrist | DX: L30.9 Dermatitis, unspecified (principal); L98.9 Disorder of the skin and subcutaneous tissue, unspecified; L60.0 Ingrowing nail; E11.40 Type 2 diabetes mellitus with diabetic neuropathy, unspecified; Z79.4 Long term (current) use of insulin; R60.0 Localized edema; M20.41 Other hammer toe(s) (acquired), right foot; M20.42 Other hammer toe(s) (acquired), left foot | CPT/HCPCS: 11057; 11104 ==

== ENCOUNTER 2025-05-17 08:00 | Day surgery (SDC) | payer MEDICARE, SELFPAY ==
--- NOTE | 2025-05-17 08:16 | ANES.PREOP_ITS ---
General Info Date of Service Date Performed: 05/17/25 Height: 5 ft 2.5 in Weight: 108.579 kg Body Mass Index (BMI): 43.0 Surgical Procedure: Operation Date: 05/17/25 09:55 Proposed Procedure Side Surgeon p Cataract Extraction with IOL Implant Left Duran Neal MD Meds Allergies and Home Medications Allergies Allergy/AdvReac Type Severity Reaction Status Date / Time Fish Containing Products Allergy Unknown Anaphylaxis Verified 05/17/25 08:42 Iodinated Contrast Media Allergy Unknown Anaphylaxis Verified 05/17/25 08:42 (Iodinated Contrast- Oral and IV Dye) Penicillins Allergy Unknown Other (See Verified 05/17/25 08:42 Comment) Sulfa (Sulfonamide Allergy Unknown Other (See Verified 05/17/25 08:42 Antibiotics) Comment) trimethoprim Allergy Unknown Other (See Verified 05/17/25 08:42 Comment) isosorbide AdvReac Intermediate Headache Verified 05/17/25 08:42 Quinolones AdvReac Intermediate Other (See Verified 05/17/25 08:42 Comment) bisoprolol AdvReac Fatigue Verified 05/17/25 08:42 Home Medication ?Medication ?Instructions ?Recorded cholecalciferol (vitamin D3) 50 2,000 unit PO DAILY ## 1 09/13/16 mcg (2,000 unit) capsule (Vitamin D3) multivitamin (Daily Multi-Vitamin 1 ea PO DAILY ##1 tablet) coenzyme Q10 100 mg capsule 100 mg PO DAILY 01/05/19 olopatadine 0.2 % eye drops 1 drp ophthalmic (eye) NAHUM LY PRN 12/27/19 (Pataday) cyclosporine 0.05 % eye drops in a 1 drp ophthalmic (e ye) BID 06/01/22 dropperette (Restasis) clotrimazole 1 % topical cream 1 applic topical BID LA N 05/16/23 intertrigo #45 grams blood-glucose meter (OneTouch #1 ea 07/15/23 Verio Flex Start kit) nystatin 100,000 unit/mL oral 500,000 unit (5 mL) bucc al QID 12/24/23 suspension #480 mL Held on 05/15/25. Instructions: Changed by Provider sarilumab 200 mg/1.14 mL 200 mg subcut Q2W 05/07/24 subcutaneous pen injector blood sugar diagnostic #200 ea 05/21/24 cetirizine 10 mg tablet (Zyrtec) 10 mg PO DAILY #90 ta bs 05/21/24 epinephrine 0.3 mg/0.3 mL 0.3 mg (0.3 mL) IM ONCE PRN 05/21/24 injection, auto-injector (EpiPen hypersensitivity reac tion #2 ea 2-Alex) insulin degludec 200 unit/mL (3 50 unit (0.25 mL) subc ut QHS #10 05/21/24 mL) subcutaneous pen SYRGS lancets 30 gauge (OneTouch #200 ea 05/21/24 UltraSoft 2 Lancet) spironolactone 50 mg tablet 50 mg PO DAILY #90 tabs levothyroxine 125 mcg tablet 125 mcg PO DAILY #90 tabs 07/27/24 montelukast 10 mg tablet 10 mg PO DAILY #90 tabs 08/08 03/01 (Singulair) omeprazole 40 mg capsule,delayed 40 mg PO DAILY #90 ca ps 08/24/24 release atorvastatin 10 mg tablet See Rx Instructions .Route 0 10/18/24 .COMPLEX #90 tabs potassium chloride 20 mEq 20 meq PO BID #180 tabs 10/07 03/01 tablet,extended release tirzepatide 15 mg/0.5 mL 15 mg (0.5 mL) subcut QWEEK #6 mL 11/02/24 subcutaneous pen injector losartan 100 mg tablet 100 mg PO DAILY #90 tabs 06/01 albuterol sulfate 90 mcg/actuation 2 puff inhalation Q 6H PRN 11/23/24 aerosol inhaler shortness of breath or wheez ing #36 grams amlodipine 5 mg tablet 5 mg PO BID #180 tabs blood-glucose sensor (FreeStyle #6 ea 12/24/24 Mirna 3 Plus Sensor device) pen needle, diabetic 31 gauge x #100 ea 02/04/2512/21 budesonide 160 mcg-glycopyr 9 2 inh inhalation BID 90 days #10.7 02/13/25 mcg-formot 4.8 mcg/actuation HFA grams inhaler (Breztri Aerosphere) fluticasone propionate 50 See Rx Instructions .Route 0 03/04/25 mcg/actuation nasal .COMPLEX #16 mL spray,suspension Current Visit Medications: Current Medications Generic Name Dose Route Start Last Admin Trade Name Freq PRN Reason Stop Dose Admin Acetaminophen 1,000 mg 05/17/25 06:00 Acetaminophen 500 Mg Tab PO 06/16/25 05:59 Q4H PRN PRN Balanced Salt Solution 500 ml 05/17/25 06:00 Balanced Salt Soln.-Plus 500 Ml Bag OP 06/16/25 05:59 DIRECTED [facility] Miscellaneous Medication 0 ml 05/17/25 06:00 Prednisolone 1%, Moxifloxacin 0.5%, Bromfenac 0.09% 5.6ml Btl OS 06/16/25 05:59 DIRECTED JOSE MARTIN Miscellaneous Medication 0 ml 05/17/25 06:00 Tropicam./Phenyleph. (1/2.5%) 5 Ml Btl OS 06/16/25 05:59 DIRECTED JOSE MARTIN Tetracaine HCl 0 ml 05/17/25 06:00 Tetracaine 0.5% 4 Ml Btl OS 06/16/25 05:59 DIRECTED JOSE MARTIN PFSH Active Problems Active Problems: Problem Status Onset Code Cortical age-related cataract, left eye Acute H25.012 Nuclear age-related cataract, left eye Acute H25.12 Dermatitis Acute L30.9 Benign skin lesion Acute L98.9 Acquired hammertoes of both feet Acute M20.41, M20.42 Edema Acute R60.9 Diabetes mellitus with neuropathy Acute E11.40 Obstructive sleep apnea syndrome Chronic G47.33 PMR (polymyalgia rheumatica) Chronic M35.3 Type 2 diabetes mellitus with diabetic neuropathy, with long-term current use of insulin Chronic E11.40, Z79.4 Hyperlipidemia associated with type 2 diabetes mellitus Chronic E11.69, E78.5 Asthma Chronic J45.909 Essential hypertension Chronic I10 Hypothyroidism Chronic E03.9 Anemia of chronic disease Chronic D63.8 Gastroesophageal reflux disease Chronic K21.9 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 M25.851, M25.852 Memory loss or impairment Chronic R41.3 Irritable bowel syndrome (IBS) Chronic K58.9 Osteopenia Chronic M85.80 Vitamin D deficiency Chronic E55.9 Rosacea Chronic L71.9 Localized osteoarthritis of right knee Chronic M17.11 Unilateral primary osteoarthritis, left knee Chronic M17.12 Chronic rhinitis Chronic J31.0 Intertrigo Chronic L30.4 Hiatal hernia Chronic K44.9 Morbid obesity with BMI of 45.0-49.9, adult Chronic E66.01, Z68.42 Peripheral edema Chronic R60.0 Medical History Medical History Iron deficiency anemia History of COVID-19 (~09/2021) Pericarditis (2015) Paraesophageal hernia (~2006) S/p Heath fundoplasty 2006 Postmenopausal bleeding (10/05/13) recurrent, 2009 and 2013. Negative biopsies Depressive disorder Surgical History Surgical History History of esophagogastroduodenoscopy (EGD) (10/22/05) S/P colonoscopy (10/22/05) S/P endometrial ablation History of bilateral ligation of fallopian tubes History of nasal septoplasty Status post Heath fundoplication (12/07/06) For paraesophageal hernia History of surgical removal of ganglion cyst Tobacco Smoking/Tobacco Use Status: Never Passive smoking exposure: Yes Second hand exposure: Yes Alcohol Alcohol Intake: current Alcohol intake frequency: holidays/special occasions only Alcohol type: beer, wine and hard liquor Substance Use Substance use: Never Substance use type: does not use Prental History History 2 Para Hx # Term Pregnancies 2 Multiple births Hx # Pregnancies Ectopic pregnancies AB induced Hx Number of Living Children 2 AB spontaneous Vital Signs and Lab Results Lab Results Complete Metabolic Panel: Hemoglobin A1c, (4.5-5.7) 5.8 % H 05/01/25, 13:3 1 Imaging and Studies Imaging and Studies Study information below may be from another EMR and interpreted by another provider. Please see original notes in EMR for more complete details. Stress Test Summary: Patient Name: Aicha Taylor Unit #: [id number] Loc: DI Ordering Provider: Peyton Acevedo NP Status: REG [facility] Primary Care Provider: Peyton Acevedo NP Date of Exam: 03/10/21 Sex: F Admission Date: 03/10/21 : 1955 Age: 65 APPROVED REPORT Exam: Exercise Treadmill Patient Location: Out-Patient Room/Bed: Stress Nurse: Paulina Tenorio RN Ordering Provider:PEYTON ACEVEDO, Contact Number: [phone] BMI: 50.10 Baseline Rhythm: Sinus Tachycardia Comment: inverted T wave lead III Indications: Persistent DAVE, History of asthma. Medical History Medical History: HTN, HLD, DM II, Asthma, Morbid obesity, STAR, Hypothyroidism Cardiac Medications: Albuterol sulfate, Amlodipine, Aspirin, Atorvastatin, Coenzyme Q10, Chlorthalidone, Glipizide, Insulin degludec, Losartan, Metformin, Montelukast, Omeprazole Allergies: Keflex, Fish products, Iodinated contrast, PNC, Sulfa, Trimethoprim, Isosorbide, Quinolones, Bisoprolol Cardiac Risk Factors: HTN, Hyperlipidemia, DM, FHX of CAD, Asthma, Obesity Previous Cardiac Procedures: None Pretest Chest Pain Characteristics: No chest pain Exercise History: Sedentary Physical Disabilities: Back pain Lung Sounds: Clear to auscultation Heart Sounds: Regular Stress Test Details Test: Exercise stress testing was performed using a modified Ilya protocol. Nuclear Acquisition: Rest Tc-99m/Stress Tc-99m 1 day Rest Isotope: Tc-99m Sestamibi. Dose: 14.7 Date: 03/10/2021 Injection Time: 0935 Stress Isotope: Tc-99m Sestamibi. Dose: 42 Date: 03/10/2021 Injection Time: 1235 HR Resting HR Supine: 101 bpmMax Heart Rate (APMHR): 153.827062 bpm Resting HR Standin bpmTarget HR (85% APMHR): 130.643412 bpm Max HR Achieved: 152 bpm % of APMHR: 99.35 Recovery HR: 103 bpm HR response to stress: Normal HR response to stress Comment: Tachycardic baseline HR. BP Resting BP Supine: 150/86 mmHg Resting BP Standin/84 mmHg Max BP: 166/78 mmHg Recovery BP: 140/78 mmHg BP response to stress: Normal blood pressure response to stress. ECG Resting ECG: Sinus Tachycardia Ectopy: PVCs Comment: inverted T wave lead III Stress ECG: Sinus Tachycardia ST Change: No significant ST segment changes noted Arrhythmia: PVCs Recovery ECG: Sinus Tachycardia Recovery ST Change: No significant ST segment changes noted Recovery Arrhythmia: Couplets, multifocal PVCs Clinical Reason for Termination: Fatigue, Dyspnea, Back pain Stress Symptoms: Dyspnea Exercise duration: 2 min59 sec Highest Stage Reached: Stage 1: 1.7 mph at 10% grade. Exercise capacity: 2.96 METs Rate Pressure Product: [id number] Stress ECG Conclusion 1. The patient exercised for 3 minutes (3 minutes). Exercise was stopped due to dyspnea. 2. She had exaggerated heart rate response to exercise. 3. There was no evidence of ischemia on the ECG portion of the exam. Stress Test Summary STAGETime (mins)Speed (mph)Grade (%)[id number] [id number]/86 Jjlifnkc191466/84 131.625117DbD5 97%; moderated SOB4.6 1 min xplkxgrz582989/78 3 min xcxjytgs234433/76 6 min [id number]/78 MPI Conclusion The ejection fraction was greater than 70% with stress. There were no wall motion abnormalities. There is a significant mount of extracardiac uptake inhibiting the interpretation of the study. That said, there was no significant perfusion defect. This likely represents a normal SPECT stress test. Radiologist Interpretation Radiologist agrees with Production Material Coordinator's Interpretation. Radiologist Interpretation by: Pito Hooper MD Interpretation Date/Time: 03/10/2021 15:26:45 Ordered By: Peyton Acevedo NP CC: MARYCRUZ DORADO MD Dictated By: Marycruz Dorado M.D. 03/10/21 1310 <Electronically signed by Marycruz Dorado M.D. in OV> 03/12/21 0901 Transcribed By: Marycruz Dorado MD This is privileged, confidential information intended only for the provider named. Any use or distribution by any person other than this provider is stri ctly prohibited. If you receive this report in error, please notify us immediately at [phone] and return the original report to us at the address above. Thank-you. Echocardiogram Summary: Patient Name: Aicha Taylor Unit #: [id number] Loc: Ordering Provider: Peyton Acevedo NUCLEAR POWER REACTOR OPERATOR Status: REG CLI Primary Care Provider: Peyton Acevedo NP Date of Exam: 02/19/21 Sex: F Admission Date: 02/19/21 : 1955 Age: 65 APPROVED REPORT EXAM: Comprehensive 2D, Doppler, and color-flow Echocardiogram Patient Location: Out-Patient Manufacturing Sr Engineer: Isabel Barbour RDCS (AE) Indications: Persistent Dyspne on exertion Other Information Study Quality: Fair. Technically limited study due to body habitus. Conclusion Left Ventricle : The left ventricle is normal size. The left ventricular ejection fraction is within the normal range. There is normal left ventricular wall thickness. There is normal LV segmental wall motion. LVEF is 57%. Right Ventricle : The right ventricle is normal size. The right ventricular systolic function is normal. Atria : The left atrium size is normal. The right atrium size is normal. Valves: There are no hemodynamically significant valvular lesions. Great Vessels : The aortic root is normal in size. The ascending aorta is mildly dilated. Aortic arch is normal in caliber. IVC is normal in size and collapses >50% with inspiration. Please see remainder of study for further details. Wall motion Left Ventricle The left ventricle is normal size. The left ventricular ejection fraction is within the normal range. There is normal left ventricular wall thickness. There is normal LV segmental wall motion. There is no ventricular septal defect visualized. LVEF is 57%. Right Ventricle The right ventricle is normal size. The right ventricular systolic function is normal. Atria The left atrium size is normal. The right atrium size is normal. The interatrial septum is intact with no evidence for an atrial septal defect. Aortic Valve The aortic valve is normal in structure. Aortic valve is trileaflet. There is no aortic valvular stenosis. No aortic regurgitation is present. Mitral Valve The mitral valve is normal in structure. No evidence of mitral valve stenosis. Trace mitral regurgitation. Tricuspid Valve The tricuspid valve is normal in structure. There is no tricuspid valve stenosis. Trace tricuspid regurgitation. Unable to assess PA pressure. Pulmonic Valve Pulmonic valve is not well visualized. There is no pulmonic valvular stenosis. There is no pulmonic valvular regurgitation. Great Vessels The aortic root is normal in size. The ascending aorta is mildly dilated. Aortic arch is normal in caliber. IVC is normal in size and collapses >50% with inspiration. Pericardium There is no pericardial effusion. 2D Dimensions IVSD d PLAX 0.98 cm F: 0.6-1.0LV Vol A2C d MOD 85.6 mL LVPW d PLAX 0.98 cm F: 0.6 - 1.0LV Vol A4C d MOD 94.1 mL LVID d PLAX 4.70 cm F: 3.8 - 5.2LA vol/ BSA A4C s A-L44.1 mL/m2 LVDs 3.20 cm F: 2.2 - 3.5LA Area A4C s MOD 27.60 cm2 Ao Root d 2.70 cm F: 2.7 - 3.3LV EF A4C MOD 58.8 % RA Area A4C12.96 cm2LV EF A2C MOD 63.0 % RA Vol/ BSA A4C s A-L 14.4 mL/m2LV EF Biplane MOD 57.2 % Ao Asc Diam d 3.38 cm F: 2.3 - 3.1SV51.57 mL LV EF Teichholz 58.9 %SV Index23.48 mL/m2 LVEF (Salomon's)57.15 % F: 54 - 74 LV Kirgcv14.66 mL F: 46 - 106 LV Volume Index29.98 mL/m2 F: 29 - 61 LV Vol Biplane MOD 90.2 mL FS31.15 % M-Mode TAPSE 2.60 cm (M/F) >1.7 LV Diastology E/A Ratio 1.0 MV E Vmax 0.84 (0.4-1.3 m/s) MV A Vmax 0.85 (0.4-1.3 m/s) MV E/A Ratio 0.93 Aortic Valve LVOT Area3.68 cm2AoV Area Vmax3.29 cm2 LVOT Vmax 1.20 m/sAoV Area/ BSA (Vmax)1.50 cm2/m2 LVOT Mean Declan.0.88 m/sAVA Mean Declan.3.06 cm2 LVOT Peak Grad 5.8 mmHgAVA Mean Declan. Index1.39 cm2/m2 LVOT Mean Grad 3.5 mmHg LVOT VTI0.242 m LVOT Diam s 2.15 cm AoV Vmax1.34 m/s Velocity Ratio 0.89 AoV Mean Declan.1.06 m/s AoV Peak Grad7.2 mmHg LVOT SV 88.90 mL AoV Mean Grad4.7 mmHg AoV VTI0.282 m AoV Area VTI3.16 cm2 AoV Area/ BSA (VTI)1.44 cm/m2 Mitral Valve MV DT 239 (160-240 msec) MV PHT69 msec MV Area PHT 3.17 cm2 MV VTI 0.196 m MV Area VTI 4.54 (4.0-6.0 cm2) Pulmonary Valve PV Vmax 0.93 (0.5-1.5 m/s)RVOT Peak Gr.2.56 mmHg PV Peak Grad 3.5 mmHgRVOT Mean Gr.1.20 mmHg PV Mean Grad 2.0 mmHgRVOT VTI0.156 m PV VTI 0.174 mRVOT Vmax 0.80 m/s Ordered By: Peyton Acevedo NP CC: Dictated By: Marycruz Dorado M.D. 02/19/21 1246 <Electronically signed by Marycruz Dorado M.D. in OV> 02/19/21 1329 Transcribed By: Marycruz Dorado MD This is privileged, confidential information intended only for the provider named. Any use or distribution by any person other than this provider is strictly prohibited. If you receive this report in error, please notify us immediately at [phone] and return the original report to us at the address above. Thank-you. Pulmonary Function Summary: Pulmonary Function Test PATIENT NAME: Aicha Taylor UNIT #: [id number] ADMITTING PROVIDER: Jessica Camejo M.D. PRIMARY CARE PROVIDER: PEYTON ACEVEDO NP DATE OF ADMIT: 07/06/21 : 1955 Date of service: 07/06/21 Time of Service: 10:03 Pulmonary Function Test Result Requesting Provider Bashir Indications: Asthma, DAVE Interpretation Spirometry: There is no airflow obstruction. There is no significant bronchodilator response. Lung Volumes: Lung volumes are normal Diffusion Capacity: Diffusion is normal Airway Pressure: Airways resistance is normal. Impression Normal pulmonary function testing Note: When compared to 12/16/20, the FEV1 and FVC are unchanged. The TLC and RV have reduced and the DLCO has decreased as well. Clinical Correlation therefore is recommended. cc: Dictated by: JESSICA CAMEJO MD Dictated: 07/06/21 Time: 1640 <Electronically signed by Jessica Camejo M.D.> Date: 07/06/211643 Date: Date: Transcribed Date: 07/06/21 Transcribed Time: 1640 By: ERIK This is privileged, confidential information, intended only for the provider named. Any use or distribution by any person other than this provider is strictly prohibited. If you receive this report in error, please notify us immediately at [phone] and return the original report to us at the address above. Thank you. Anesthesia Assessment and Plan Anesthesia History Personal History: No History of Anesthesia Complications Family History: No Family History of Anesthesia Complications Exercise Tolerance Exercise Tolerance: Metabolic Equivalents<4 Pertinent Negatives Pertinent Negatives: No Symptoms of GERD Cardiac & Pulmonary Exam Cardiac Exam: Normal S1/S2 Heart Sounds Pulmonary Exam: Clear Bilateral Breath Sounds Implantable Cardiac Device Does patient have a Pacemaker or an ICD?: No Airway Exam Known Difficult Airway: No Mallampati Class: 3 Mouth Opening: Normal (> 3cm) Thyromental Distance: Greater than 3 cm Neck Range of Motion: Limited ROM Neck Circumference: Thick Teeth Condition: Normal Dentition (Permanent Dental implants, appears mainly front upper incisors) and Generalized Poor Dentition ASA Classification ASA Score: ASA 3 Emergency Case?: No NPO Status NPO Status: NPO Clears >2 hours, Solids >8 hours Anesthesia Plan Resuscitation Status: Full Code Anesthesia Technique: MAC Anesthesia Airway Planned: Natural Airway Monitors Used: Standard Monitors Preoperative Comments:: METS less than 3
[2025-05-17 08:33] VITALS: BP 162/78; PULSE 89; RESP 16; TEMP 36.4; O2SAT 99
[2025-05-17] MEDS: Tropicam./Phenyleph. (1/2.5%) 5 ML BTL OS ×3 (08:38→08:59)
[2025-05-17] MEDS: Tropicam./Phenyleph. (1/2.5%) 5 ML BTL (08:38)
[2025-05-17 09:02] VITALS: BMI 43.0
[2025-05-17] MEDS: Prednisolone 1%, Moxifloxacin 0.5%, Bromfenac 0.09% 5.6ML BTL 5.6 ML (09:52)
[2025-05-17] MEDS: Duovisc Viscoelastic System EACH 1 EACH (09:53)
[2025-05-17] MEDS: Tetracaine 0.5% 4 ML BTL (09:53)
[2025-05-17] MEDS: Lidocaine 1% Pres-Free 5 ML VIAL (09:53)
[2025-05-17] MEDS: Phenylephrine/Lidocaine (15/10) MG/ML 1 ML VIAL (09:54)
[2025-05-17] MEDS: Moxifloxacin-PF 1 MG/ML VIAL (09:54)
[2025-05-17] MEDS: Trypan Blue 0.06% 0.5 ML SYR (09:55)
[2025-05-17] MEDS: Povidone-Iodine Ophth 30 ML BTL (09:55)
[2025-05-17] MEDS: Balanced Salt Soln.-PLUS 500 ML BAG OP (09:56)
--- NOTE | 2025-05-17 10:12 | PDOC.DSDIS_ITS ---
Date of service: 05/17/25 Discharge Plan Disposition Patient Disposition: Home Discharge Details Attending Provider: Duran Neal Primary Care Provider: Amilcar Gore Home Meds and New Rx's Prescriptions: No Action clotrimazole 1 % cream 1 applic topical BID PRN (Reason: intertrigo) Qty: 45 0RF Rx Instructions: Apply beneath breasts and to groin areas twice a day as needed for rash. May need to treat for 2-4wks nystatin 100,000 unit/mL suspension 500,000 unit buccal QID Qty: 480 0RF Rx Instructions: administer 1/2 of dose in each side of the mouth, hold in mouth as long as possible, then spit coenzyme Q10 100 mg capsule 100 mg PO DAILY olopatadine [Pataday] 0.2 % drops 1 drp OP DAILY PRN (DME) blood sugar diagnostic Strip See Dose Instructions .ROUTE .MEDSUPPLY Qty: 200 3RF Dose Instruction: As directed Rx Instructions: Check blood sugar twice a day cetirizine [Zyrtec] 10 mg tablet 10 mg PO DAILY Qty: 90 4RF epinephrine [EpiPen 2-Alex] 0.3 mg/0.3 mL auto-injector 0.3 mg IM ONCE PRN (Reason: hypersensitivity reaction) Qty: 2 4RF insulin degludec 200 unit/mL (3 mL) insulin pen 50 unit SC QHS Qty: 10 4RF (DME) lancets [BiotheraTouch UltraSoft 2 Lancet] 30 gauge misc See Rx Instructions .Route Qty: 200 3RF Rx Instructions: Check blood sugar twice a day albuterol sulfate 90 mcg/actuation HFA aerosol inhaler 2 puff Inhalation Q6H PRN (Reason: shortness of breath or wheezing) Qty: 36 4RF multivitamin [Daily Multi-Vitamin] 1 EACH tablet 1 ea PO DAILY Qty: 1 cholecalciferol (vitamin D3) [Vitamin D3] 2,000 UNIT capsule 2,000 unit PO DAILY Qty: 1 cyclosporine [Restasis] 0.05 % dropperette 1 drp Ophthalmic BID Rx Instructions: (per pt states both eyes 06/01/22) (DME) blood-glucose meter [OneTouch Verio Flex Start] Kit See Rx Instructions .Route Qty: 1 3RF Rx Instructions: Check blood sugar twice a day sarilumab 200 mg/1.14 mL pen injector 200 mg subcut Q2W Rx Instructions: 05/07/24: See task. -hb spironolactone 50 mg tablet 50 mg PO DAILY Qty: 90 3RF levothyroxine 125 mcg tablet 125 mcg PO DAILY Qty: 90 3RF omeprazole 40 mg capsule,delayed release(DR/EC) 40 mg PO DAILY Qty: 90 3RF montelukast [Singulair] 10 mg tablet 10 mg PO DAILY Qty: 90 3RF atorvastatin 10 mg tablet See Rx Instructions .ROUTE .COMPLEX Qty: 90 3RF Dose Instruction: TAKE ONE TABLET BY MOUTH EVERY DAY Rx Instructions: TAKE ONE TABLET BY MOUTH EVERY DAY potassium chloride 20 mEq tablet extended release 20 meq PO BID Qty: 180 3RF tirzepatide 15 mg/0.5 mL pen injector 15 mg subcut QWEEK Qty: 6 5RF Rx Instructions: dose increase, please give 3 month supply if possible. losartan 100 mg tablet 100 mg PO DAILY Qty: 90 3RF amlodipine 5 mg tablet 5 mg PO BID Qty: 180 3RF (DME) FreeStyle Mirna 3 Plus Sensor Device See Rx Instructions .Route Qty: 6 4RF Rx Instructions: As directed (DME) pen needle, diabetic 31 gauge x 5/16 needle See Rx Instructions .MEDSUPPLY Qty: 100 3RF Rx Instructions: [facility] Aerosphere 160-9-4.8 mcg/actuation HFA aerosol inhaler 2 inh inhalation BID 90 Days Qty: 10.7 12RF fluticasone propionate 50 mcg/actuation spray,suspension See Rx Instructions .ROUTE .COMPLEX Qty: 16 4RF Dose Instruction: SPRAY 2 SPRAYS INTO NOSTRILS DAILY NEEDED FOR ALLERGY SYMPTOMS Rx Instructions: SPRAY 2 SPRAYS INTO NOSTRILS DAILY NEEDED FOR ALLERGY SYMPTOMS Discharge Instructions Stand Alone Forms: [facility] ([facility]) Discharge Orders Discharge Orders: Discharge Order (Routine); Ordered 05/17/25 Ordered By: Duran Neal DS: Diagnosis Discharge Diagnosis (1) Cortical age-related cataract, left eye: Status: Resolved (2) Nuclear age-related cataract, left eye: Status: Resolved
--- NOTE | 2025-05-17 10:13 | W.PM.OP ---
Operative Note Operative Note PRE-OP DIAGNOSIS: Nuclear/cortical cataract, left eye POST-OP DIAGNOSIS: same PROCEDURE: Cataract extraction using phacoemulsification with intraocular lens implant, left eye SURGEON: Duran Neal ANESTHESIA TYPE: Local By Surgeon and MAC Refer to Anesthesia Record PATHOLOGY: none sent COMPLICATIONS: None Patient was transported to: same day Patient's condition: stable Implants: Storm Clareon [id number] Indications: Progressive decreased vision due to cataract, left eye Procedure Description: CATARACT SURGERY OPERATIVE REPORT PREOPERATIVE DIAGNOSIS: Nuclear/cortical cataract, left eye POSTOPERATIVE DIAGNOSIS: Same OPERATION: Cataract extraction using phacoemulsification with posterior chamber intraocular lens implant, left eye. IOL: IOL Event Specialist/Model: Storm Clareon [id number] IOL Power: + 18.5 diopters IOL Serial Number: [id number] Optic Diameter: 6.0mm Haptic/Overall Diameter: 13.0mm PHACO INFO: Storm Centurion Vision System with OZil and Active Fluidics Cumulative Dispersed Energy (CDE): 5.59 seconds SURGEON: Duran Neal MD, [place] ANESTHESIA: Monitored Anesthesia Care (MAC), with local sub-tenon's anesthetic infiltration COMPLICATIONS: None SPECIMENS: None INDICATIONS FOR PROCEDURE: The patient is a 69-year-old lady with history of diminished visual acuity in her left eye secondary to the development of nuclear/cortical cataract. She is significantly symptomatic that she desires cataract surgery and attempt to improve and maximize her vision. The option of cataract surgery was offered to the patient and she wished to proceed. See office notes for detailed information. PROCEDURE: The correct surgical eye was identified and marked as the left eye and the pupil was dilated in the preoperative area using mydriatics and cycloplegics. The dilated pupil size was 7.0 mm. The patient elected to proceed without oral sedation. The patient was brought to the operating room where cardiopulmonary monitoring was instituted and surgical time-out was performed, confirming the correct operative eye and IOL power. Topical anesthesia was administered and ophthalmic povidone-iodine 5% was instilled into the conjunctival fornices. The manuel-ocular area was prepped with Betadine 10% solution and draped in the usual sterile fashion for intraocular surgery, including an aperture drape. A Tegaderm transparent film dressing was cut in half and used to cover the lashes and lid margins. Care was taken to sequester the lashes and lid margins under the Tegaderm dressing. A lid speculum was placed between the lids of the operative eye and the Storm LuxOR Revalia operating microscope was maneuvered into position. Franco scissors were then used to make a conjunctival buttonhole approximately 6mm posterior to the limbus in the inferonasal quadrant. Blunt dissection was carried out to expose bare sclera, and a blunt-tipped sub-tenon?s anesthesia cannula was introduced and passed posteriorly along the globe where non-preserved plain lidocaine was injected into posterior sub-Tenon?s space. A sideport knife was used to make a paracentesis port. VisionBlue was injected into the anterior chamber and allowed to sit for 30 seconds. Intraocular phenylephrine/lidocaine was injected into the anterior chamber. The anterior chamber was then filled with viscoelastic. A keratome knife was used construct a two-plane clear corneal tunnel extending 2.0mm into clear cornea. A flap was raised on the anterior capsule and capsulorhexis forceps were used to complete a continuous curvilinear capsulorhexis of 5.0 mm. Balanced salt solution was then used to perform cortical cleaving hydrodissection and nuclear hydrodelineation until the lens could be freely rotated within the capsular bag. The lens nucleus was then disassembled and removed within the capsular bag and iris plane using phacoemulsification. Residual cortical material was removed using the irrigation/aspiration handpiece. The posterior capsule was carefully polished to remove as much residual lens epithelial cells as safely possible. The capsular bag was then inflated and the anterior chamber deepened with viscoelastic. The lens implant described above was inserted into the capsular bag using the Storm Autonome Injector. A Kuglen hook was used to dial the IOL into position. Residual viscoelastic was then removed first from posterior to the IOL, then from the anterior chamber using the I/A handpiece. The lens implant was noted to center nicely within the capsular bag. The incisions were stromally hydrated, and the anterior chamber was reformed using BSS. Then 0.5cc of moxifloxacin 1.0mg/ml were injected into the capsular bag and anterior chamber. The incisions were checked with a Weck spear and found to be secure. Several drops of ophthalmic povidone-iodine 5% were then applied to the eye followed by two drops of combination steroid/NSAID/antibiotic solution. The drapes were removed and a clear plastic protective eye shield was placed over the eye. The patient was then returned to Same Day Surgery in stable condition. Date of Procedure: 05/17/25
[2025-05-17 10:14] VITALS: BP 173/85; PULSE 94; RESP 16; TEMP 36; O2SAT 98
--- NOTE | 2025-05-17 10:45 | W.ANESPOSTOP ---
Postoperative Evaluation Date, Time and Location Date Performed: 05/17/25 Time Performed: 10:15 Patient Location: Day Surgery Unit Vital Signs Most Recent Imported Vital Signs: Most Recent Vital Signs Temp Pulse Resp BP Pulse Ox 36 C L 94 H 16 173/85 H 98 05/17/25 10:14 05/17/25 10:14 05/17/25 10:14 05/17/25 10:14 05/17/25 10:14 Pain Score Most Recent Pain Score: Most Recent Pain Score Pain Level 0 05/17/25 10:14 Assessment Mental Status: Awake (Alert & Oriented to Patient Baseline) Airway and Respiratory Function: Patent airway with normal (patient baseline) respiratory exam Cardiovascular Function: Hemodynamically Stable Hydration Status: Adequately Hydrated Nausea & Vomiting: No Nausea or Vomiting Pain: Pt. Denies Any Pain Peripheral Nerve Block: Other (Local by Dr. Neal)
== END 2025-05-17 10:35 | disposition home or self-care (01) ==
PROVIDERS: PCP Nurse Practitioner Family; Visit Provider Ophthalmology
PROC: (CPT 66984; principal; 2025-05-17 09:45)
DX: H25.012 Cortical age-related cataract, left eye (principal); H25.12 Age-related nuclear cataract, left eye
CPT/HCPCS: 66984; 00123; V2632; J2003

== ENCOUNTER → 2025-05-30 15:03 | Outpatient (BNVA) | payer MEDICARE, SELFPAY | PROVIDERS: PCP Nurse Practitioner Family; Referring Provider Nurse Practitioner Family; Visit Provider Podiatrist | DX: E11.42 Type 2 diabetes mellitus with diabetic polyneuropathy (principal); Z79.4 Long term (current) use of insulin; M20.41 Other hammer toe(s) (acquired), right foot; M20.42 Other hammer toe(s) (acquired), left foot; I73.89 Other specified peripheral vascular diseases; L30.9 Dermatitis, unspecified; L98.9 Disorder of the skin and subcutaneous tissue, unspecified; L60.0 Ingrowing nail; R60.0 Localized edema; R25.2 Cramp and spasm | CPT/HCPCS: 99214 ==

== ENCOUNTER 2025-05-31 08:05 | Day surgery (SDC) | payer MEDICARE, SELFPAY ==
[2025-05-31 08:33] VITALS: BP 141/79; PULSE 95; RESP 16; TEMP 36.2; O2SAT 97
[2025-05-31] MEDS: Tropicam./Phenyleph. (1/2.5%) 5 ML BTL OD ×3 (08:46→08:57)
--- NOTE | 2025-05-31 09:03 | W.ANESPRE ---
General Info Date of Service Date Performed: 05/31/25 Height: 5 ft 2.25 in Weight: 110.2 kg Body Mass Index (BMI): 44.0 Surgical Procedure: Operation Date: 05/31/25 10:10 Proposed Procedure Side Surgeon p Cataract Extraction with IOL Implant Right Duran Neal MD Meds Allergies and Home Medications Allergies Allergy/AdvReac Type Severity Reaction Status Date / Time Fish Containing Products Allergy Unknown Anaphylaxis Verified 05/31/25 08:40 Iodinated Contrast Media Allergy Unknown Anaphylaxis Verified 05/31/25 08:40 (Iodinated Contrast- Oral and IV Dye) Penicillins Allergy Unknown Other (See Verified 05/31/25 08:40 Comment) Sulfa (Sulfonamide Allergy Unknown Other (See Verified 05/31/25 08:40 Antibiotics) Comment) trimethoprim Allergy Unknown Other (See Verified 05/31/25 08:40 Comment) isosorbide AdvReac Intermediate Headache Verified 05/31/25 08:40 Quinolones AdvReac Intermediate Other (See Verified 05/31/25 08:40 Comment) bisoprolol AdvReac Fatigue Verified 05/31/25 08:40 Home Medication ?Medication ?Instructions ?Recorded cholecalciferol (vitamin D3) 50 2,000 unit PO DAILY ##1 09/13/16 mcg (2,000 unit) capsule (Vitamin D3) multivitamin (Daily Multi-Vitamin 1 ea PO DAILY ##1 09/13/16 tablet) coenzyme Q10 100 mg capsule 100 mg PO DAILY 01/05/19 olopatadine 0.2 % eye drops 1 drp ophthalmic (eye) DAILY PRN 12/27/19 (Pataday) cyclosporine 0.05 % eye drops in a 1 drp ophthalmic (eye) BID 06/01/22 dropperette (Restasis) clotrimazole 1 % topical cream 1 applic topical BID PRN 05/16/23 intertrigo #45 grams sarilumab 200 mg/1.14 mL 200 mg subcut Q2W 05/07/24 subcutaneous pen injector cetirizine 10 mg tablet (Zyrtec) 10 mg PO DAILY #90 tabs 05/21/24 insulin degludec 200 unit/mL (3 50 unit (0.25 mL) subcut QHS #10 05/21/24 mL) subcutaneous pen SYRGS montelukast 10 mg tablet 10 mg PO DAILY #90 tabs 08/24/24 (Singulair) omeprazole 40 mg capsule,delayed 40 mg PO DAILY #90 caps 08/24/24 release atorvastatin 10 mg tablet See Rx Instructions .Route 10/18/24 .COMPLEX #90 tabs potassium chloride 20 mEq 20 meq PO BID #180 tabs 11/01/24 tablet,extended release tirzepatide 15 mg/0.5 mL 15 mg (0.5 mL) subcut QWEEK #6 mL 11/02/24 subcutaneous pen injector losartan 100 mg tablet 100 mg PO DAILY #90 tabs 11/15/24 albuterol sulfate 90 mcg/actuation 2 puff inhalation Q6H PRN 11/23/24 aerosol inhaler shortness of breath or wheezing #36 grams amlodipine 5 mg tablet 5 mg PO BID #180 tabs 12/05/24 blood-glucose sensor (FreeStyle #6 ea 12/24/24 Mirna 3 Plus Sensor device) pen needle, diabetic 31 gauge x #100 ea 02/04/2512/21 budesonide 160 mcg-glycopyr 9 2 inh inhalation BID 90 days #10.7 02/13/25 mcg-formot 4.8 mcg/actuation HFA grams inhaler (Breztri Aerosphere) fluticasone propionate 50 See Rx Instructions .Route 03/04/25 mcg/actuation nasal .COMPLEX #16 mL spray,suspension blood sugar diagnostic #200 ea 05/24/25 blood-glucose meter (OneTouch #1 ea 05/24/25 Verio Flex Start kit) epinephrine 0.3 mg/0.3 mL 0.3 mg (0.3 mL) IM ONCE PRN 05/24/25 injection, auto-injector (EpiPen hypersensitivity reaction #2 ea 2-Alex) lancets 30 gauge (OneTouch #200 ea 05/24/25 UltraSoft 2 Lancet) levothyroxine 125 mcg tablet 125 mcg PO DAILY #90 tabs 05/24/25 spironolactone 50 mg tablet 50 mg PO DAILY #90 tabs 05/24/25 Current Visit Medications: Current Medications Generic Name Dose Route Start Last Admin Trade Name Freq PRN Reason Stop Dose Admin Acetaminophen 1,000 mg 05/31/25 06:00 Acetaminophen 500 Mg Tab PO 06/30/25 05:59 Q4H PRN PRN Balanced Salt Solution 500 ml 05/31/25 06:00 Balanced Salt Soln.-Plus 500 Ml Bag OP 06/30/25 05:59 DIRECTED JOSE MARTIN Miscellaneous Medication 0 ml 05/31/25 06:00 Prednisolone 1%, Moxifloxacin 0.5%, Bromfenac 0.09% 5.6ml Btl OD 06/30/25 05:59 DIRECTED JOSE MARTIN Miscellaneous Medication 0 ml 05/31/25 06:00 05/31/25 08:57 Tropicam./Phenyleph. (1/2.5%) 5 Ml Btl OD 06/30/25 05:59 1 drp DIRECTED JOSE MARTIN Administration Tetracaine HCl 0 ml 05/31/25 06:00 Tetracaine 0.5% 4 Ml Btl OD 06/30/25 05:59 DIRECTED JOSE MARTIN PFSH Active Problems Active Problems: Problem Status Onset Code Cortical age-related cataract, right eye Acute H25.011 Nuclear age-related cataract, right eye Acute H25.11 Cramping of feet Acute R25.2 PAD (peripheral artery disease) Acute I73.9 Skin lesions, generalized Acute L98.9 Cortical age-related cataract, left eye Resolved H25.012 Nuclear age-related cataract, left eye Resolved H25.12 Dermatitis Acute L30.9 Benign skin lesion Acute L98.9 Acquired hammertoes of both feet Acute M20.41, M20.42 Edema Acute R60.9 Diabetes mellitus with neuropathy Acute E11.40 Obstructive sleep apnea syndrome Chronic G47.33 PMR (polymyalgia rheumatica) Chronic M35.3 Type 2 diabetes mellitus with diabetic neuropathy, with long-term current use of insulin Chronic E11.40, Z79.4 Hyperlipidemia associated with type 2 diabetes mellitus Chronic E11.69, E78.5 Asthma Chronic J45.909 Essential hypertension Chronic I10 Hypothyroidism Chronic E03.9 Anemia of chronic disease Chronic D63.8 Gastroesophageal reflux disease Chronic K21.9 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 M25.851, M25.852 Memory loss or impairment Chronic R41.3 Irritable bowel syndrome (IBS) Chronic K58.9 Osteopenia Chronic M85.80 Vitamin D deficiency Chronic E55.9 Rosacea Chronic L71.9 Localized osteoarthritis of right knee Chronic M17.11 Unilateral primary osteoarthritis, left knee Chronic M17.12 Chronic rhinitis Chronic J31.0 Intertrigo Chronic L30.4 Hiatal hernia Chronic K44.9 Morbid obesity with BMI of 45.0-49.9, adult Chronic E66.01, Z68.42 Peripheral edema Chronic R60.0 Medical History Medical History Iron deficiency anemia History of COVID-19 (~09/2021) Pericarditis (2015) Paraesophageal hernia (~2006) S/p Heath fundoplasty 2006 Postmenopausal bleeding (10/05/13) recurrent, 2009 and 2013. Negative biopsies Depressive disorder Surgical History Surgical History History of esophagogastroduodenoscopy (EGD) (10/22/05) S/P colonoscopy (10/22/05) S/P endometrial ablation History of bilateral ligation of fallopian tubes History of nasal septoplasty Status post Heath fundoplication (12/07/06) For paraesophageal hernia History of surgical removal of ganglion cyst Tobacco Smoking/Tobacco Use Status: Never Passive smoking exposure: No Second hand exposure: Yes Alcohol Alcohol Intake: current Alcohol intake frequency: holidays/special occasions only Alcohol type: beer, wine and hard liquor Substance Use Substance use: Never Substance use type: does not use Prental History History 2 Para Hx # Term Pregnancies 2 Multiple births Hx # Pregnancies Ectopic pregnancies AB induced Hx Number of Living Children 2 AB spontaneous Vital Signs and Lab Results Vital Signs Most Recent Vital Signs in EMR: Most Recent Vital Signs Temp Pulse Resp BP Pulse Ox 36.2 C L 95 H 16 141/79 H 97 05/31/25 08:33 05/31/25 08:33 05/31/25 08:33 05/31/25 08:33 05/31/25 08:33 Point of Care Results Point of Care Results: Finger Stick Blood Glucose 86 05/31/25 08:45 Lab Results Complete Metabolic Panel: Hemoglobin A1c, (4.5-5.7) 5.8 % H 05/01/25, 13:31 Imaging and Studies Imaging and Studies Study information below may be from another EMR and interpreted by another provider. Please see original notes in EMR for more complete details. Stress Test Summary: Patient Name: Aicha Taylor Unit #: [id number] Loc: DI Ordering Provider: Peyton Acevedo NP Status: REG CLI Primary Care Provider: Peyton Acevedo NP Date of Exam: 03/10/21 Sex: F Admission Date: 03/10/21 : 1955 Age: 65 APPROVED REPORT Exam: Exercise Treadmill Patient Location: Out-Patient Room/Bed: Stress Nurse: Paulina Tenorio RN Ordering Provider:PEYTON ACEVEDO, Contact Number: [phone] BMI: 50.10 Baseline Rhythm: Sinus Tachycardia Comment: inverted T wave lead III Indications: Persistent DAVE, History of asthma. Medical History Medical History: HTN, HLD, DM II, Asthma, Morbid obesity, STAR, Hypothyroidism Cardiac Medications: Albuterol sulfate, Amlodipine, Aspirin, Atorvastatin, Coenzyme Q10, Chlorthalidone, Glipizide, Insulin degludec, Losartan, Metformin, Montelukast, Omeprazole Allergies: Keflex, Fish products, Iodinated contrast, PNC, Sulfa, Trimethoprim, Isosorbide, Quinolones, Bisoprolol Cardiac Risk Factors: HTN, Hyperlipidemia, DM, FHX of CAD, Asthma, Obesity Previous Cardiac Procedures: None Pretest Chest Pain Characteristics: No chest pain Exercise History: Sedentary Physical Disabilities: Back pain Lung Sounds: Clear to auscultation Heart Sounds: Regular Stress Test Details Test: Exercise stress testing was performed using a modified Ilya protocol. Nuclear Acquisition: Rest Tc-99m/Stress Tc-99m 1 day Rest Isotope: Tc-99m Sestamibi. Dose: 14.7 Date: 03/10/2021 Injection Time: 0935 Stress Isotope: Tc-99m Sestamibi. Dose: 42 Date: 03/10/2021 Injection Time: 1235 HR Resting HR Supine: 101 bpmMax Heart Rate (APMHR): 153.154672 bpm Resting HR Standin bpmTarget HR (85% APMHR): 130.041356 bpm Max HR Achieved: 152 bpm % of APMHR: 99.35 Recovery HR: 103 bpm HR response to stress: Normal HR response to stress Comment: Tachycardic baseline HR. BP Resting BP Supine: 150/86 mmHg Resting BP Standin/84 mmHg Max BP: 166/78 mmHg Recovery BP: 140/78 mmHg BP response to stress: Normal blood pressure response to stress. ECG Resting ECG: Sinus Tachycardia Ectopy: PVCs Comment: inverted T wave lead III Stress ECG: Sinus Tachycardia ST Change: No significant ST segment changes noted Arrhythmia: PVCs Recovery ECG: Sinus Tachycardia Recovery ST Change: No significant ST segment changes noted Recovery Arrhythmia: Couplets, multifocal PVCs Clinical Reason for Termination: Fatigue, Dyspnea, Back pain Stress Symptoms: Dyspnea Exercise duration: 2 min59 sec Highest Stage Reached: Stage 1: 1.7 mph at 10% grade. Exercise capacity: 2.96 METs Rate Pressure Product: [id number] Stress ECG Conclusion 1. The patient exercised for 3 minutes (3 minutes). Exercise was stopped due to dyspnea. 2. She had exaggerated heart rate response to exercise. 3. There was no evidence of ischemia on the ECG portion of the exam. Stress Test Summary STAGETime (mins)Speed (mph)Grade (%)HRBPSYMPTOMSMETS [id number]/86 [id number]/84 131.368644IeA4 97%; moderated SOB4.6 1 min [id number]/78 3 min [id number]/76 6 min [id number]/78 MPI Conclusion The ejection fraction was greater than 70% with stress. There were no wall motion abnormalities. There is a significant mount of extracardiac uptake inhibiting the interpretation of the study. That said, there was no significant perfusion defect. This likely represents a normal SPECT stress test. Radiologist Interpretation Radiologist agrees with Medical [facility] Health Services Manager's Interpretation. Radiologist Interpretation by: Pito Hooper MD Interpretation Date/Time: 03/10/2021 15:26:45 Ordered By: Peyton Acevedo NP CC: MARYCRUZ DORADO MD Dictated By: Marycruz Dorado M.D. 03/10/21 1310 <Electronically signed by Marycruz Dorado M.D. in OV> 03/12/21 0901 Transcribed By: Marycruz Dorado MD This is privileged, confidential information intended only for the provider named. Any use or distribution by any person other than this provider is strictly prohibited. If you receive this report in error, please notify us immediately at [phone] and return the original report to us at the address above. Thank-you. Echocardiogram Summary: Patient Name: Aicha Taylor Unit #: [id number] Loc: DI Ordering Provider: Peyton Acevedo ENGINEERING PROJECT MANAGER Status: REG [facility] Primary Care Provider: Peyton Acevedo NP Date of Exam: 02/19/21 Sex: F Admission Date: 02/19/21 : 1955 Age: 65 APPROVED REPORT EXAM: Comprehensive 2D, Doppler, and color-flow Echocardiogram Patient Location: Out-Patient Hand Router Operator: Isabel Barbour RDCS (AE) Indications: Persistent Dyspne on exertion Other Information Study Quality: Fair. Technically limited study due to body habitus. Conclusion Left Ventricle : The left ventricle is normal size. The left ventricular ejection fraction is within the normal range. There is normal left ventricular wall thickness. There is normal LV segmental wall motion. LVEF is 57%. Right Ventricle : The right ventricle is normal size. The right ventricular systolic function is normal. Atria : The left atrium size is normal. The right atrium size is normal. Valves: There are no hemodynamically significant valvular lesions. Great Vessels : The aortic root is normal in size. The ascending aorta is mildly dilated. Aortic arch is normal in caliber. IVC is normal in size and collapses >50% with inspiration. Please see remainder of study for further details. Wall motion Left Ventricle The left ventricle is normal size. The left ventricular ejection fraction is within the normal range. There is normal left ventricular wall thickness. There is normal LV segmental wall motion. There is no ventricular septal defect visualized. LVEF is 57%. Right Ventricle The right ventricle is normal size. The right ventricular systolic function is normal. Atria The left atrium size is normal. The right atrium size is normal. The interatrial septum is intact with no evidence for an atrial septal defect. Aortic Valve The aortic valve is normal in structure. Aortic valve is trileaflet. There is no aortic valvular stenosis. No aortic regurgitation is present. Mitral Valve The mitral valve is normal in structure. No evidence of mitral valve stenosis. Trace mitral regurgitation. Tricuspid Valve The tricuspid valve is normal in structure. There is no tricuspid valve stenosis. Trace tricuspid regurgitation. Unable to assess PA pressure. Pulmonic Valve Pulmonic valve is not well visualized. There is no pulmonic valvular stenosis. There is no pulmonic valvular regurgitation. Great Vessels The aortic root is normal in size. The ascending aorta is mildly dilated. Aortic arch is normal in caliber. IVC is normal in size and collapses >50% with inspiration. Pericardium There is no pericardial effusion. 2D Dimensions IVSD d PLAX 0.98 cm F: 0.6-1.0LV Vol A2C d MOD 85.6 mL LVPW d PLAX 0.98 cm F: 0.6 - 1.0LV Vol A4C d MOD 94.1 mL LVID d PLAX 4.70 cm F: 3.8 - 5.2LA vol/ BSA A4C s A-L44.1 mL/m2 LVDs 3.20 cm F: 2.2 - 3.5LA Area A4C s MOD 27.60 cm2 Ao Root d 2.70 cm F: 2.7 - 3.3LV EF A4C MOD 58.8 % RA Area A4C12.96 cm2LV EF A2C MOD 63.0 % RA Vol/ BSA A4C s A-L 14.4 mL/m2LV EF Biplane MOD 57.2 % Ao Asc Diam d 3.38 cm F: 2.3 - 3.1SV51.57 mL LV EF Teichholz 58.9 %SV Index23.48 mL/m2 LVEF (Salomon's)57.15 % F: 54 - 74 LV Clqvvn04.66 mL F: 46 - 106 LV Volume Index29.98 mL/m2 F: 29 - 61 LV Vol Biplane MOD 90.2 mL FS31.15 % M-Mode TAPSE 2.60 cm (M/F) >1.7 LV Diastology E/A Ratio 1.0 MV E Vmax 0.84 (0.4-1.3 m/s) MV A Vmax 0.85 (0.4-1.3 m/s) MV E/A Ratio 0.93 Aortic Valve LVOT Area3.68 cm2AoV Area Vmax3.29 cm2 LVOT Vmax 1.20 m/sAoV Area/ BSA (Vmax)1.50 cm2/m2 LVOT Mean Declan.0.88 m/sAVA Mean Declan.3.06 cm2 LVOT Peak Grad 5.8 mmHgAVA Mean Declan. Index1.39 cm2/m2 LVOT Mean Grad 3.5 mmHg LVOT VTI0.242 m LVOT Diam s 2.15 cm AoV Vmax1.34 m/s Velocity Ratio 0.89 AoV Mean Declan.1.06 m/s AoV Peak Grad7.2 mmHg LVOT SV 88.90 mL AoV Mean Grad4.7 mmHg AoV VTI0.282 m AoV Area VTI3.16 cm2 AoV Area/ BSA (VTI)1.44 cm/m2 Mitral Valve MV DT 239 (160-240 msec) MV PHT69 msec MV Area PHT 3.17 cm2 MV VTI 0.196 m MV Area VTI 4.54 (4.0-6.0 cm2) Pulmonary Valve PV Vmax 0.93 (0.5-1.5 m/s)RVOT Peak Gr.2.56 mmHg PV Peak Grad 3.5 mmHgRVOT Mean Gr.1.20 mmHg PV Mean Grad 2.0 mmHgRVOT VTI0.156 m PV VTI 0.174 mRVOT Vmax 0.80 m/s Ordered By: Peyton Acevedo NP CC: Dictated By: Marycruz Dorado M.D. 02/19/21 7800 <Electronically signed by Marycruz Dorado M.D. in OV> 02/19/21 9808 Transcribed By: Marycruz Dorado MD This is privileged, confidential information intended only for the provider named. Any use or distribution by any person other than this provider is strictly prohibited. If you receive this report in error, please notify us immediately at [phone] and return the original report to us at the address above. Thank-you. Pulmonary Function Summary: Pulmonary Function Test PATIENT NAME: Aicha Taylor UNIT #: [id number] ADMITTING PROVIDER: Jessica Camejo M.D. [facility] DATE OF ADMIT: 07/06/21 : 1955 Date of service: 07/06/21 Time of Service: 10:03 Pulmonary Function Test Result Requesting Provider Bashir Indications: Asthma, DAVE Interpretation Spirometry: There is no airflow obstruction. There is no significant bronchodilator response. Lung Volumes: Lung volumes are normal Diffusion Capacity: Diffusion is normal Airway Pressure: Airways resistance is normal. Impression Normal pulmonary function testing Note: When compared to 12/16/20, the FEV1 and FVC are unchanged. The TLC and RV have reduced and the DLCO has decreased as well. Clinical Correlation therefore is recommended. cc: Dictated by: JESSICA CAMEJO MD Dictated: 07/06/21 Time: 1640 <Electronically signed by Jessica Camejo M.D.> Date: 07/06/211643 Date: Date: Transcribed Date: 07/06/21 Transcribed Time: 1640 By: ERIK This is privileged, confidential information, intended only for the provider named. Any use or distribution by any person other than this provider is strictly prohibited. If you receive this report in error, please notify us immediately at [phone] and return the original report to us at the address above. Thank you. Anesthesia Assessment and Plan Anesthesia History Personal History: No History of Anesthesia Complications Family History: No Family History of Anesthesia Complications Exercise Tolerance Exercise Tolerance: Metabolic Equivalents<4 Pertinent Negatives Pertinent Negatives: No Symptoms of GERD Cardiac & Pulmonary Exam Cardiac Exam: Normal S1/S2 Heart Sounds Pulmonary Exam: Clear Bilateral Breath Sounds Implantable Cardiac Device Does patient have a Pacemaker or an ICD?: No Airway Exam Known Difficult Airway: No Mallampati Class: 3 Mouth Opening: Normal (> 3cm) Thyromental Distance: Greater than 3 cm Neck Range of Motion: Limited ROM Neck Circumference: Thick Teeth Condition: Normal Dentition (Permanent Dental implants, appears mainly front upper incisors) and Generalized Poor Dentition ASA Classification ASA Score: ASA 3 Emergency Case?: No NPO Status NPO Status: NPO Clears >2 hours, Solids >8 hours Anesthesia Plan Resuscitation Status: Full Code Anesthesia Technique: MAC Anesthesia Airway Planned: Natural Airway Monitors Used: Standard Monitors
[2025-05-31 09:04] VITALS: BMI 44.0
[2025-05-31] MEDS: Povidone-Iodine Ophth 30 ML BTL (10:00)
[2025-05-31] MEDS: Tetracaine 0.5% 4 ML BTL OD (10:00)
[2025-05-31] MEDS: Lidocaine 1% Pres-Free 5 ML VIAL (10:01)
[2025-05-31] MEDS: Phenylephrine/Lidocaine (15/10) MG/ML 1 ML VIAL (10:01)
[2025-05-31] MEDS: Duovisc Viscoelastic System EACH 1 EACH (10:02)
[2025-05-31] MEDS: Balanced Salt Soln.-PLUS 500 ML BAG OP (10:02)
[2025-05-31] MEDS: Moxifloxacin-PF 1 MG/ML VIAL (10:11)
[2025-05-31] MEDS: Prednisolone 1%, Moxifloxacin 0.5%, Bromfenac 0.09% 5.6ML BTL OD (10:12)
[2025-05-31 10:19] VITALS: BP 149/69; PULSE 81; RESP 14; TEMP 36.5; O2SAT 99
--- NOTE | 2025-05-31 10:20 | PDOC.DSDIS_ITS ---
Date of service: 05/31/25 Discharge Plan Disposition Patient Disposition: Home Discharge Details Attending Provider: Duran Neal Primary Care Provider: Amilcar Gore Home Meds and New Rx's Prescriptions: No Action clotrimazole 1 % cream 1 applic topical BID PRN (Reason: intertrigo) Qty: 45 0RF Rx Instructions: Apply beneath breasts and to groin areas twice a day as needed for rash. May need to treat for 2-4wks coenzyme Q10 100 mg capsule 100 mg PO DAILY olopatadine [Pataday] 0.2 % drops 1 drp OP DAILY PRN cetirizine [Zyrtec] 10 mg tablet 10 mg PO DAILY Qty: 90 4RF insulin degludec 200 unit/mL (3 mL) insulin pen 50 unit SC QHS Qty: 10 4RF albuterol sulfate 90 mcg/actuation HFA aerosol inhaler 2 puff Inhalation Q6H PRN (Reason: shortness of breath or wheezing) Qty: 36 4 RF spironolactone 50 mg tablet 50 mg PO DAILY Qty: 90 3RF epinephrine [EpiPen 2-Alex] 0.3 mg/0.3 mL auto-injector 0.3 mg IM ONCE PRN (Reason: hypersensitivity reaction) Qty: 2 4RF levothyroxine 125 mcg tablet 125 mcg PO DAILY Qty: 90 3RF (DME) blood sugar diagnostic Strip See Dose Instructions .ROUTE .MEDSUPPLY Qty: 200 3RF Dose Instruction: As directed Rx Instructions: Check blood sugar twice a day (DME) blood-glucose meter [OneTouch Verio Flex Start] Kit See Rx Instructions .Route Qty: 1 3RF Rx Instructions: Check blood sugar twice a day (DME) lancets [OneTouch UltraSoft 2 Lancet] 30 gauge misc See Rx Instructions .Route Qty: 200 3RF Rx Instructions: Check blood sugar twice a day multivitamin [Daily Multi-Vitamin] 1 EACH tablet 1 ea PO DAILY Qty: 1 cholecalciferol (vitamin D3) [Vitamin D3] 2,000 UNIT capsule 2,000 unit PO DAILY Qty: 1 cyclosporine [Restasis] 0.05 % dropperette 1 drp Ophthalmic BID Rx Instructions: (per pt states both eyes 06/01/22) sarilumab 200 mg/1.14 mL pen injector 200 mg subcut Q2W Rx Instructions: 05/07/24: See task. -hb omeprazole 40 mg capsule,delayed release(DR/EC) 40 mg PO DAILY Qty: 90 3RF montelukast [Singulair] 10 mg tablet 10 mg PO DAILY Qty: 90 3RF atorvastatin 10 mg tablet See Rx Instructions .ROUTE .COMPLEX Qty: 90 3RF Dose Instruction: TAKE ONE TABLET BY MOUTH EVERY DAY Rx Instructions: TAKE ONE TABLET BY MOUTH EVERY DAY potassium chloride 20 mEq tablet extended release 20 meq PO BID Qty: 180 3RF tirzepatide 15 mg/0.5 mL pen injector 15 mg subcut QWEEK Qty: 6 5RF Rx Instructions: dose increase, please give 3 month supply if possible. losartan 100 mg tablet 100 mg PO DAILY Qty: 90 3RF amlodipine 5 mg tablet 5 mg PO BID Qty: 180 3RF (DME) FreeStyle Mirna 3 Plus Sensor Device See Rx Instructions .Route Qty: 6 4RF Rx Instructions: As directed (DME) pen needle, diabetic 31 gauge x 5/16 needle See Rx Instructions .MEDSUPPLY Qty: 100 3RF Rx Instructions: Use with [employer] qHS Breztri Aerosphere 160-9-4.8 mcg/actuation HFA aerosol inhaler 2 inh inhalation BID 90 Days Qty: 10.7 12RF fluticasone propionate 50 mcg/actuation spray,suspension See Rx Instructions .ROUTE .COMPLEX Qty: 16 4RF Dose Instruction: SPRAY 2 SPRAYS INTO NOSTRILS DAILY NEEDED FOR ALLERGY SYMPTOMS Rx Instructions: SPRAY 2 SPRAYS INTO NOSTRILS DAILY NEEDED FOR ALLERGY SYMPTOMS Discharge Instructions Stand Alone Forms: [facility] Post-Op [facility]aract[facility] (DSU) Discharge Orders Discharge Orders: Discharge Order (Routine); Ordered 05/31/25 Ordered By: Duran Neal DS: Diagnosis Discharge Diagnosis (1) Cortical age-related cataract, right eye: Status: Resolved (2) Nuclear age-related cataract, right eye: Status: Resolved
--- NOTE | 2025-05-31 10:20 | ROE_ITS ---
Operative Note Operative Note PRE-OP DIAGNOSIS: Nuclear/cortical cataract, right eye POST-OP DIAGNOSIS: same PROCEDURE: Cataract extraction using phacoemulsification with intraocular lens implant, right eye SURGEON: Duran Neal ANESTHESIA TYPE: Local By Surgeon and MAC Refer to Anesthesia Record ESTIMATED BLOOD LOSS: 0 PATHOLOGY: none sent COMPLICATIONS: None Patient was transported to: same day Patient's condition: stable Implants: Storm Clareon [id number] Indications: Progressive decreased vision due to cataract, right eye Procedure Description: CATARACT SURGERY OPERATIVE REPORT PREOPERATIVE DIAGNOSIS: Nuclear/cortical cataract, right eye POSTOPERATIVE DIAGNOSIS: Same OPERATION: Cataract extraction using phacoemulsification with posterior chamber intraocular lens implant, right eye. IOL: IOL Adjunct Mathematics Instructor/Model: Storm Clareon [id number] IOL Power: + 18.0 diopters IOL Serial Number: [id number] Optic Diameter: 6.0mm Haptic/Overall Diameter: 13.0mm PHACO INFO: Storm Centurion Vision System with OZil and Active Fluidics Cumulative Dispersed Energy (CDE): 2.74 seconds SURGEON: Duran Neal MD, [facility] ANESTHESIA: Monitored Anesthesia Care (MAC), with local sub-tenon's anesthetic infiltration COMPLICATIONS: None SPECIMENS: None INDICATIONS FOR PROCEDURE: The patient is a 69-year-old lady with history of diminished visual acuity in both eyes secondary to the development of bilateral nuclear/cortical cataract. She has already undergone cataract surgery in the left eye and is doing well postoperatively. She now presents for cataract surgery in the right eye. See office notes for detailed information. PROCEDURE: The correct surgical eye was identified and marked as the right eye and the pupil was dilated in the preoperative area using mydriatics and cycloplegics. The dilated pupil size was 7.0 mm. The patient elected to proceed without oral sedation. The patient was brought to the operating room where cardiopulmonary monitoring was instituted and surgical time-out was performed, confirming the correct operative eye and IOL power. Topical anesthesia was administered and ophthalmic povidone-iodine 5% was instilled into the conjunctival fornices. The manuel-ocular area was prepped with Betadine 10% solution and draped in the usual sterile fashion for intraocular surgery, including an aperture drape. A Tegaderm transparent film dressing was cut in half and used to cover the lashes and lid margins. Care was taken to sequester the lashes and lid margins under the Tegaderm dressing. A lid speculum was placed between the lids of the operative eye and the Storm LuxOR Revalia operating microscope was maneuvered into position. Franco scissors were then used to make a conjunctival buttonhole approximately 6mm posterior to the limbus in the inferonasal quadrant. Blunt dissection was carried out to expose bare sclera, and a blunt-tipped sub-tenon?s anesthesia cannula was introduced and passed posteriorly along the globe where non- preserved plain lidocaine was injected into posterior sub-Tenon?s space. A sideport knife was used to make a paracentesis port. Intraocular phenylephrine/lidocaine was injected into the anterior chamber. The anterior chamber was then filled with viscoelastic. A keratome knife was used to construct a two--plane clear corneal tunnel extending 2.0mm into clear cornea. A flap was raised on the anterior capsule and capsulorhexis forceps were used to complete a continuous curvilinear capsulorhexis of 5.0 mm. Balanced salt solution was then used to perform cortical cleaving hydrodissection and nuclear hydrodelineation until the lens could be freely rotated within the capsular bag. The lens nucleus was then disassembled and removed within the capsular bag and iris plane using phacoemulsification. Residual cortical material was removed using the I/A handpiece. The posterior capsule was carefully polished to remove as much residual lens epithelial cells as safely possible. The capsular bag was then inflated and the anterior chamber deepened with cohesive viscoelastic. The lens implant described above was inserted into the capsular bag using the Storm Autonome Injector. A Kuglen hook was used to dial the IOL into position. Residual viscoelastic was then removed first from posterior to the IOL, then from the anterior chamber using the I/A handpiece. The lens implant was noted to center nicely within the capsular bag. The incisions were stromally hydrated, and the anterior chamber was reformed using BSS. Then 0.5cc of moxifloxacin 1.0mg/ml were injected into the capsular bag and anterior chamber. The incisions were checked with a Weck spear and found to be secure. Several drops of ophthalmic povidone-iodine 5% were then applied to the eye followed by two drops of combination steroid/NSAID/antibiotic solution. The drapes were removed and a clear plastic protective eye shield was placed over the eye. The patient was then returned to Same Day Surgery in stable condition. Date of Procedure: 05/31/25
--- NOTE | 2025-05-31 10:32 | W.ANESPOSTOP ---
Postoperative Evaluation Date, Time and Location Date Performed: 05/31/25 Time Performed: 10:32 Patient Location: Day Surgery Unit Vital Signs Most Recent Imported Vital Signs: Most Recent Vital Signs Temp Pulse Resp BP Pulse Ox 36.5 C 81 14 149/69 H 99 05/31/25 10:19 05/31/25 10:19 05/31/25 10:19 05/31/25 10:19 05/31/25 10:19 Pain Score Most Recent Pain Score: Most Recent Pain Score Pain Level 0 05/31/25 08:33 Assessment Mental Status: Awake (Alert & Oriented to Patient Baseline) Airway and Respiratory Function: Patent airway with normal (patient baseline) respiratory exam Cardiovascular Function: Hemodynamically Stable Hydration Status: Adequately Hydrated Nausea & Vomiting: No Nausea or Vomiting Pain: Pt. Denies Any Pain Peripheral Nerve Block: Patient did not receive a nerve block
== END 2025-05-31 10:38 | disposition home or self-care (01) ==
LOC: SUR 08:05
PROVIDERS: PCP Nurse Practitioner Family; Visit Provider Ophthalmology
PROC: (CPT 66984; principal; 2025-05-31 10:00)
DX: H25.011 Cortical age-related cataract, right eye (principal); H25.11 Age-related nuclear cataract, right eye; G47.33 Obstructive sleep apnea (adult) (pediatric); K21.9 Gastro-esophageal reflux disease without esophagitis
CPT/HCPCS: 66984; 00123; V2632; J2003

== ENCOUNTER → 2025-06-04 10:12 | Outpatient (BNVA) | payer MEDICARE, SELFPAY | PROVIDERS: PCP Nurse Practitioner Family; Referring Provider Nurse Practitioner Family; Visit Provider Physician Assistant Surgical | DX: M35.3 Polymyalgia rheumatica (principal); J45.50 Severe persistent asthma, uncomplicated; K44.9 Diaphragmatic hernia without obstruction or gangrene; G47.33 Obstructive sleep apnea (adult) (pediatric) | CPT/HCPCS: 99214 ==

== ENCOUNTER → 2025-06-17 13:18 | Outpatient (BNVA) | payer MEDICARE, SELFPAY | PROVIDERS: PCP Nurse Practitioner Family; Referring Provider Nurse Practitioner Family; Visit Provider Podiatrist | DX: R25.2 Cramp and spasm (principal); I73.89 Other specified peripheral vascular diseases; L30.9 Dermatitis, unspecified; L60.0 Ingrowing nail; E11.42 Type 2 diabetes mellitus with diabetic polyneuropathy; Z79.4 Long term (current) use of insulin; R60.0 Localized edema; M20.41 Other hammer toe(s) (acquired), right foot; M20.42 Other hammer toe(s) (acquired), left foot | CPT/HCPCS: 93922 ==

== ENCOUNTER → 2025-07-25 00:34 | Outpatient (CLI) | payer MEDICARE, SELFPAY ==
--- NOTE | 2025-07-25 09:45 | DI.US_ITS ---
Exam(s) US BREAST LT COMPLETE US BREAST RT COMPLETE MG MAMMO DIAGNOSTIC BI EXAM: MG MAMMO DIAGNOSTIC BI and bilateral breast ultrasound complete CLINICAL HISTORY: change in feeling, noticed when supine,LT BREAST MASS, RT BREAST MASS,. TECHNIQUE: Craniocaudal and mediolateral oblique Full Field Digital Mammography views of the bilateral breast with Computer Aided Diagnosis followed by Tomosynthesis and complete bilateral breast ultrasound. All 4 quadrants, the retroareolar and the axillary regions of both breast were evaluated sono graphically. COMPARISON: Comparison is made with prior examinations. FINDINGS: Mammography/Tomosynthesis: Masses/Architectural Distortion: There are no suspicious masses or microcalcifications present. There are stable nodules seen in the breast bilaterally. Microcalcifictions: No suspicious pleomorphic-type are seen. Skin Thickening/Nipple Retraction: None. Complete bilateral breast US: Echotexture: Normal appearance of the glandular tissue. Shadowing: No suspicious foci. Cyst: None. Solid lesions: None seen. Ductal dilation: None. IMPRESSION: 1. No evidence of malignancy is noted. 2. Unless there is more urgent need, follow-up screening mammography is recommended, as per [place] [employer] guidelines. 3. The findings were discussed with the patient on the date of the examination. BI-RADS Category 1 - Negative Breast Density - Category A - The breast are almost entirely fatty. Breast density Category C or D implies that the patient has dense breast tissue. Dense breast tissue can make it harder to find cancer on a mammogram. Dense breast tissue is also associated with an increased risk of breast cancer. This information about the result of the mammogram report was provided to the patient to raise their awareness. Use this report when you speak with the patient about their risks for breast cancer, which includes their family history. At that time, you may recommend additional screening tests (Ultrasound or MRI) as these tests may add significant information. A negative radiographic report should not delay biopsy if a dominant or clinically suspicious mass is present. Up to ten percent of cancers are not identified on mammography. A negative report may reinforce clinical impression. Adenosis and dense breasts may obscure an underlying neoplasm. False positive reports average 6 to 10%. Patient will receive a letter notifying them of these results.
== END ==
LOC: DI 00:35
PROVIDERS: PCP Nurse Practitioner Family; Visit Provider Nurse Practitioner Family
DX: N63.20 Unspecified lump in the left breast, unspecified quadrant (principal); N63.10 Unspecified lump in the right breast, unspecified quadrant; N60.12 Diffuse cystic mastopathy of left breast; Z12.31 Encounter for screening mammogram for malignant neoplasm of breast
CPT/HCPCS: 76642; 77062; 77066; G0279

== ENCOUNTER 2025-08-05 16:14 | Outpatient (REF) | payer MEDICARE, SELFPAY | END 2025-08-05 16:15 | disposition home or self-care (01) | LOC: LBN 16:14 | PROVIDERS: PCP Nurse Practitioner Family; Visit Provider Physician Assistant | DX: R82.90 Unspecified abnormal findings in urine (principal) | CPT/HCPCS: 87086 ==